=== PATIENT | female | born 1950 | race Caucasian/White ===

== ENCOUNTER 2024-12-30 14:40 | Outpatient (AMB) | payer MEDICARE, MEDICAID, SELFPAY ==
--- NOTE | 2024-12-30 14:57 | MHC.PC.OV ---
Vital Signs 12/30/24 15:06 Height 4 ft 7 in Weight 192 lb 6 oz BMI 44.7 BP 158/72 H Blood Pressure Location Rt brachial Position Sitting Pulse 54 Pulse Source Pulse Oximeter Temp 98.6 F Temp Source Temporal Artery Scan Pulse Oximetry (%) 98 Oxygen Delivery Method Room Air Intake Visit Reasons: EST CARE/ANERISM Intake Note: Symone presents in the office today to establish care. Allergies pneumococcal vaccine Allergy (Unknown, Verified 12/30/24 17:40) unknown amoxicillin Allergy (Verified 12/30/24 15:31) Unknown aspirin Allergy (Verified 12/30/24 15:31) Unknown carvedilol Allergy (Verified 12/30/24 15:31) Unknown chlorthalidone Allergy (Verified 12/30/24 15:31) Unknown clarithromycin Allergy (Verified 12/30/24 15:31) Unknown doxycycline Allergy (Verified 12/30/24 15:31) Unknown dyphylline Allergy (Verified 12/30/24 15:31) Unknown hydrochlorothiazide Allergy (Verified 12/30/24 15:31) Unknown levofloxacin [From Levaquin] Allergy (Verified 12/30/24 15:32) Unknown lisinopril Allergy (Verified 12/30/24 15:31) Unknown loratadine [From Claritin] Allergy (Verified 12/30/24 15:32) Unknown methylprednisolone Allergy (Verified 12/30/24 15:31) Unknown prednisone Allergy (Verified 12/30/24 15:31) Unknown spironolactone Allergy (Verified 12/30/24 15:31) Unknown tetracycline Allergy (Verified 12/30/24 15:31) Unknown theophylline Allergy (Verified 12/30/24 15:31) Unknown influenza vaccine Allergy (Unknown, Uncoded 12/30/24 17:40) unknown Contrast Dye Allergy (Uncoded 12/30/24 15:31) Unknown Slo-bid Gyrocaps Allergy (Uncoded 12/30/24 15:31) Unknown Tobacco use date assessed: 12/30/24 Fall risk assessment: No Falls in past year Last assessed Fall Risk: 12/30/24 Dental Screening Dental Screen Date: 12/30/24 Did you have a dental visit in the last 12 months?: Yes Did you have a dental problem in the last 6 months where you did not have access to dental care?: No Was dental information given to patient?: Patient has dentist HPI HPI Comments History of Present Illness Details This is a 74-year-old female with a past medical history of osteoarthritis, asthma, chronic anemia, B12 deficiency, colon polyps, elevated alkaline phosphatase, hypertension, hyperparathyroidism, hypothyroidism, atrial fibrillation, aortic aneurysm, obstructive sleep apnea, vitamin-D deficiency and varicose veins presenting to critical access hospital care. She transferred from [facility], Dr. Mukesh Kennedy. Accompanied by her son. Anemia, low b12-she is followed by hematology in [facility], Dr. Garza. She has a follow up in March. Atrial fibrillation, aortic aneurysm-followed by cardiology, Dr. Morocho. Taking Eliquis. She had a recent CT chest on 12/20/24 4.2 cm unchanged ascending aortic aneurysm. She has an appointment with Dr. Jesus on 01/15/25. Anticoagulated on Eliquis. Hypertension-fluctuates per patient. Stress increases blood pressure. She is on metoprolol and valsartan. She has a blood pressure cuff at home. At higher dosages of metoprolol she suffered from worse bradycardia which resulted in hospitalization. Adverse reactions to multiple antihypertensives. See allergen list. She is followed by Dr Zavala for pulmonary hyptertension and asthma. MADISON-on CPAP. She is followed by [facility] endocrinology for hyperparathyroidism. She is going to have blood work done at [facility] specialist have already ordered the tests. Bilateral OA in her knees. Bone on bone Tried injections. It did not help. Mammograms and bone density at [facility]. ROS: Constitutional: No unexplained weight loss, fever, chills Eyes: No vision changes Respiratory: No shortness of breath, cough or sputum production. Cardiovascular: No chest pain, chest pressure or chest discomfort. No palpitations Neurologic: No headache, dizziness, syncope Psychiatric: No depression or anxiety. No SI/HI. Physical exam: Constitutional: Alert, in no distress. Head: Normocephalic. Neck: Supple, Full range of motion. No lymphadenopathy. No palpable thyroid masses. Respiratory: Clear to auscultation. Cardiovascular: irregularly irregular rhythm, normal rate, No murmurs. No carotid bruits. Neurologic: No focal neurological deficits Musculoskeletal: +Bilateral crepitus and anterior medial tenderness. No edema/warmth. Ambulates with cane.. Extremities: Warm and well perfused. No clubbing, cyanosis. Trace bilateral ankle edema. Psychiatric: Normal mood and affect [facility] Medical History (Updated 12/30/24 @ 17:44 by DALE Flower) Morbid obesity Varicose vein of leg Vitamin D deficiency MADISON (obstructive sleep apnea) Aortic aneurysm Atrial fibrillation Hypothyroid Hyperparathyroidism Essential hypertension Elevated alkaline phosphatase level Colon polyp B12 deficiency Chronic anemia Moderate persistent asthma Bilateral primary osteoarthritis of knee Social History (Updated 12/30/24 @ 15:06 by Corazon Cotton MA) Housing: Apartment Alcohol intake: never Patient Tobacco Use Status: Never used Tobacco e-Cigarette/Vaping Use: Never Used Second Hand Smoke Exposure: Yes service: No Current occupational status: retired Current occupational exposures/hazards: No Cognitive needs: No Hearing needs: No Vision needs: No Questionnaire PHQ-9 Over the last 2 weeks, how often have you been bothered by any of the following problems? 1. Little interest or pleasure in doing things: not at all 2. Feeling down, depressed, or hopeless: not at all 3. Trouble falling or staying asleep, or sleeping too much: not at all 4. Feeling tired or having little energy: not at all 5. Poor appetite or overeating: not at all 6. Feeling bad about yourself - or that you are a failure or have let yourself or your family down: not at all 7. Trouble concentrating on things, such as reading the newspaper or watching television: not at all 8. Moving or speaking so slowly that other people could have noticed. Or the opposite - being so fidgety or restless that you have been moving around a lot more than usual: not at all 9. Thoughts that you would be better off or of hurting yourself in some way: not at all Total score: 0 Depression Screening Interpretation: Negative Depression Screening Done: Yes 83901 - PHQ-9 Billing: Patient declined-do not bill Source: Developed by Drs. Teo Garcia, Ania Gilliland, Juan Marin and colleagues, with an educational miri from [employer]. Thrive Questionnaire Date Thrive assessed: 12/30/24 I am a: Patient What is your living situation today?: I have a steady place to live Within the past 12 months, did the food you bought not last and you didn't have the money to get more?: Never true Within the past 12 months, did you worry whether your food would run out before you got money to buy more?: Never true Do you have trouble paying for medicines?: No Do you have trouble getting transportation to medical appointments?: No Do you have trouble paying your heating and electricity bill?: No Do you have trouble taking care of your child, family member or friend?: No Do you have trouble with day-to-day activities such as bathing, preparing meals, shopping, managing finances, etc.?: No Are you currently unemployed and looking for a job?: No Are you interested in more education?: No Please select the resources that you would like help with: None Currently or been in a relationship where the following occur: No concerns reported THRIVE Score: 0 AUDIT C Alcohol Use Questionnaire (AUDIT-C) 1. How often do you have a drink containing alcohol?: Never 3. How often do you have six or more drinks on one occasion?: Never Total Score: 0 Score Reviewed/Action Taken: No ADAM-7 AMB Questionnaire ADAM-7 Date ADAM - 7 assessed: 12/30/24 Feeling nervous, anxious, or on edge: 0 = Not at all Not being able to stop or control worryin = Not at all Worrying too much about different things: 0 = Not at all Trouble relaxin = Not at all Being so restless that it is hard to sit still: 0 = Not at all Becoming easily annoyed or irritable: 0 = Not at all Feeling afraid as if something awful might happen: 0 = Not at all Total ADAM-7 score (0-4 normal; 5-9 mild; 10-14 moderate; 15-21 severe): 0 Source: Developed by Drs. Teo Garcia, Ania Gilliland, Juan Marin and colleagues, with an educational miri from [employer]. ADAM-7 Assessment Billing ADAM-7 Assessment Tool: ADAM-7 Assessment 04697 Physical exam (Primary Care) Vital Signs: Last Vital Signs Temp 98.6 F 12/30/24 15:06 Pulse 54 12/30/24 15:06 BP 158/72 H 12/30/24 15:06 Pulse Ox 98 12/30/24 15:06 Oxygen Delivery Method Room Air 12/30/24 15:06 BMI result Body Mass Index 44.7 Tobacco/Smoking Status: Tobacco use Status Tobacco use date assessed 12/30/24 12/30/24 15:12 Patient Tobacco Use Status Never used Tobacco 12/30/24 15:12 e-Cigarette/Vaping Use Never Used 12/30/24 15:12 PHQ-9: PHQ-9 Score PHQ-9: Total score 0 12/30/24 15:21 Depression Screening Interpretation: Negative Thrive Assessment: Date of Thrive Assessment Date Thrive assessed 12/30/24 12/30/24 14:59 Currently or been in a relationship where the following occur: No concerns reported Coding Level of Care Code New Pt Level 4 (60365) Complex EM visit Add On G2211 Diagnoses MADISON (obstructive sleep apnea) G47.33 Aortic aneurysm I71.9 Atrial fibrillation I48.91 Hypothyroid E03.9 Hyperparathyroidism E21.3 Essential hypertension I10 Moderate persistent asthma J45.40 Chronic anemia D64.9 Additional Codes ADAM-7 Assessment Billing - ADAM-7 Assessment Tool: ADAM-7 Assessment [id number] ([id number]) Assessment & Plan Assessment & Plan (1) MADISON (obstructive sleep apnea): Code(s): G47.33 - Obstructive sleep apnea (adult) (pediatric) Category: Medical (2) Aortic aneurysm: Code(s): I71.9 - Aortic aneurysm of unspecified site, without rupture Category: Medical (3) Atrial fibrillation: Code(s): I48.91 - Unspecified atrial fibrillation Category: Medical (4) Hypothyroid: Code(s): E03.9 - Hypothyroidism, unspecified Category: Medical (5) Hyperparathyroidism: Code(s): E21.3 - Hyperparathyroidism, unspecified Category: Medical (6) Essential hypertension: Code(s): I10 - Essential (primary) hypertension Category: Medical (7) Moderate persistent asthma: Code(s): J45.40 - Moderate persistent asthma, uncomplicated Category: Medical (8) Chronic anemia: Code(s): D64.9 - Anemia, unspecified Category: Medical Plan The patient will continue her current medications. We discussed that her blood pressure is elevated today, but she attributes this to anxiety. She has a blood pressure cuff at home, and she agreed to send me readings over the portal, and she has a follow up with Cardiology on 01/15/2025. We reviewed the results of her CAT scan which showed an unchanged aortic aneurysm. This will require further monitoring with her cardiology team, but she is satisfied that it has not enlarged. We discussed that blood pressure needs to remain well-controlled given risk factors for cardiovascular disease and history of aortic aneurysm. She understands. Recommended low-sodium diet and avoidance of caffeine. She will follow up with her specialists as planned. I have placed orders for knee x-rays and referral to Orthopedics. She will follow up with me in 3 months. Orders: Orders XR knee LT 2V Today M17.0 - Bilateral primary osteoarthritis of knee XR knee RT 2V Today M17.0 - Bilateral primary osteoarthritis of knee Referrals Orthopedics Referral M17.0 - Bilateral primary osteoarthritis of knee
[2024-12-30 15:06] VITALS: BP 158/72; PULSE 54; TEMP 37; O2SAT 98; BMI 44.7
== END 2024-12-30 16:48 | disposition home or self-care (01) ==
LOC: HO.HMCFM 14:41
PROVIDERS: PCP Physician Assistant Medical; Visit Provider Physician Assistant Medical
DX: G47.33 Obstructive sleep apnea (adult) (pediatric) (principal); I71.9 Aortic aneurysm of unspecified site, without rupture; I48.91 Unspecified atrial fibrillation; E03.9 Hypothyroidism, unspecified; E21.3 Hyperparathyroidism, unspecified; I10 Essential (primary) hypertension; J45.40 Moderate persistent asthma, uncomplicated; D64.9 Anemia, unspecified

== ENCOUNTER → 2024-12-30 14:40 | Outpatient (BNVA) | payer MEDICARE, SELFPAY | PROVIDERS: PCP Physician Assistant Medical; Visit Provider Physician Assistant Medical | DX: J45.40 Moderate persistent asthma, uncomplicated (principal); I10 Essential (primary) hypertension; E21.3 Hyperparathyroidism, unspecified; E03.9 Hypothyroidism, unspecified; I48.91 Unspecified atrial fibrillation; G47.33 Obstructive sleep apnea (adult) (pediatric); I71.9 Aortic aneurysm of unspecified site, without rupture; D64.9 Anemia, unspecified; M17.0 Bilateral primary osteoarthritis of knee | CPT/HCPCS: 96127; 99202 ==

== ENCOUNTER 2025-03-18 10:01 | Outpatient (REF) | payer MEDICARE, MEDICAID, SELFPAY ==
--- NOTE | ~2025-03-18 | XR_ITS ---
EXAMINATION: XR KNEE, RIGHT CLINICAL INFORMATION: M25.569 - Pain in unspecified knee COMPARISON: None available. TECHNIQUE: Three views of the right knee. FINDINGS: There is severe narrowing of the medial joint space. There is narrowing of the patellofemoral lateral joint base. There is chondrocalcinosis involving the medial and lateral compartments. There is varus deformity. There are moderate tricompartmental marginal osteophytes. 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 Electronically signed by: Magen Real MD 03/18/2025 02:35 PM EDT
--- NOTE | ~2025-03-18 | XR_ITS ---
EXAMINATION: XR KNEE, LEFT CLINICAL INFORMATION: M25.569 - Pain in unspecified knee COMPARISON: None available. TECHNIQUE: Three views of the left knee. FINDINGS: There is severe narrowing of the medial joint space and minimal narrowing of the lateral joint space. Patellofemoral joint space is relatively preserved. There is a joint effusion. There is chondrocalcinosis in the medial and lateral compartments. There are moderate osteophytes involving the medial joint line and small osteophytes in the patellofemoral and lateral joint compartments. XR/XR knee LT 3V IMPRESSION: Moderate to severe osteoarthritis secondary to CPPD arthropathy with a joint effusion. Electronically signed by: Magen Real MD 03/18/2025 02:34 PM EDT
== END 2025-03-18 10:02 | disposition home or self-care (01) ==
LOC: HO.HOSX 10:01
PROVIDERS: Visit Provider Physician Assistant
DX: M17.0 Bilateral primary osteoarthritis of knee (principal); M25.561 Pain in right knee; M25.562 Pain in left knee; G89.29 Other chronic pain; Z79.01 Long term (current) use of anticoagulants
CPT/HCPCS: 73562; 99202

== ENCOUNTER 2025-03-18 14:07 | Outpatient (AMB) | payer MEDICARE, MEDICAID, SELFPAY ==
[2025-03-18 14:29] VITALS: BMI 44.6
--- NOTE | 2025-03-18 14:29 | MHC.OFFVIS ---
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 Patient reports ongoing knee pain for quite some time now, has had injections in the past at [facility] that were not helpful. Her pain is felt every day with the right knee slightly worse than the left. She does not take anything for her pain due to extensive medical history and allergies. She is unsure how she would like to proceed with treatment options because of her history as well. she would like to learn more about gel injections. Allergies pneumococcal vaccine Allergy (Unknown, Verified 03/18/25 14:29) unknown amoxicillin Allergy (Verified 03/18/25 14:29) Unknown aspirin Allergy (Verified 03/18/25 14:29) Unknown carvedilol Allergy (Verified 03/18/25 14:29) Unknown chlorthalidone Allergy (Verified 03/18/25 14:29) Unknown clarithromycin Allergy (Verified 03/18/25 14:29) Unknown doxycycline Allergy (Verified 03/18/25 14:29) Unknown dyphylline Allergy (Verified 03/18/25 14:29) Unknown hydrochlorothiazide Allergy (Verified 03/18/25 14:29) Unknown levofloxacin (From Levaquin) Allergy (Verified 03/18/25 14:29) Unknown lisinopril Allergy (Verified 03/18/25 14:29) Unknown loratadine (From Claritin) Allergy (Verified 03/18/25 14:29) Unknown methylprednisolone Allergy (Verified 03/18/25 14:29) Unknown prednisone Allergy (Verified 03/18/25 14:29) Unknown spironolactone Allergy (Verified 03/18/25 14:29) Unknown tetracycline Allergy (Verified 03/18/25 14:29) Unknown theophylline Allergy (Verified 03/18/25 14:29) Unknown influenza vaccine Allergy (Unknown, Uncoded 03/18/25 14:29) unknown Contrast Dye Allergy (Uncoded 03/18/25 14:29) Unknown Slo-bid Gyrocaps Allergy (Uncoded 03/18/25 14:29) Unknown HPI HPI 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 Ethan Calderon is a 75-year-old female who presents to the office today for bilateral knee arthritis. She states that she has had chronic knee pain for many years. She was being seen prior at [facility] where she was receiving cortisone injections. Over time the patient reports that cortisone injections became less helpful. She is interested in pursuing gel injections. [facility] Medical History Morbid obesity Varicose vein of leg Vitamin D deficiency MADISON (obstructive sleep apnea) Aortic aneurysm Atrial fibrillation Hypothyroid Hyperparathyroidism Essential hypertension Elevated alkaline phosphatase level Colon polyp B12 deficiency Chronic anemia Moderate persistent asthma Bilateral primary osteoarthritis of knee Social History Housing: Apartment Alcohol intake: never Patient Tobacco Use Status: Never used Tobacco e-Cigarette/Vaping Use: Never Used Second Hand Smoke Exposure: Yes service: No Current occupational status: retired Current occupational exposures/hazards: No Cognitive needs: No Hearing needs: No Vision needs: No Review of Systems Const All systems reviewed & are unremarkable except as noted in HPI and below Physical Exam Vital Signs: BMI result Body Mass Index 44.6 Const General: cooperative, healthy appearing and no acute distress Resp Effort & Inspection: normal respiratory effort and able to speak in complete sentences Extrem Other: Bilateral lower extremities: Large body habitus. Tenderness to palpation bilaterally in the lateral joint lines. Crepitus felt with range of motion. Range of motion 10-100 degrees. NVI. Assessment & Plan Assessment & Plan (1) Bilateral primary osteoarthritis of knee: Code(s): M17.0 - Bilateral primary osteoarthritis of knee Category: Medical Plan Ms. Ethan Calderon is a 75-year-old female who presents to the office today for bilateral knee arthritis. She states that she has had chronic knee pain for many years. She was being seen prior at [facility] where she was receiving cortisone injections. Over time the patient reports that cortisone injections became less helpful. She is interested in pursuing gel injections. While the office today, we discussed the role of gel injections. The patient is interested in moving forward with these. She would like to exacerbate all conservative treatment before surgical intervention is considered. She has multiple comorbidities that would make surgical intervention difficult such as an aortic aneurysm, atrial fibrillation on Eliquis, morbid obesity with a BMI of 44.6, and persistent asthma among others. We will petition the insurance company for coverage of gel injections. Once we hear back from the insurance company we will schedule appointments appropriately. X-rays of bilateral knees which were obtained while in the office today and were reviewed by me, Taylor Garcia PA-C, revealed severe osteoarthritis bilaterally. Orders: Orders XR knee RT 3V Today M25.569 - Pain in unspecified knee XR knee LT 3V Today M25.569 - Pain in unspecified knee Coding Level of Care Code New Pt Level 4 (30334) Diagnoses Bilateral primary osteoarthritis of knee M17.0
== END 2025-03-18 15:09 | disposition home or self-care (01) ==
LOC: HO.HOS 14:08
PROVIDERS: PCP Physician Assistant Medical; Visit Provider Physician Assistant
DX: M17.0 Bilateral primary osteoarthritis of knee (principal)
CPT/HCPCS: 99204

== ENCOUNTER → 2025-03-18 14:15 | Outpatient (BNV) | payer MEDICARE, MEDICAID, SELFPAY | PROVIDERS: Visit Provider Radiology Diagnostic Radiology | DX: M17.0 Bilateral primary osteoarthritis of knee (principal); M25.462 Effusion, left knee; M11.261 Other chondrocalcinosis, right knee; M11.262 Other chondrocalcinosis, left knee; M21.161 Varus deformity, not elsewhere classified, right knee | CPT/HCPCS: 73562 ==

== ENCOUNTER 2025-04-10 14:14 | Outpatient (REF) | payer MEDICARE, SELFPAY ==
[2025-04-10 18:12] LABS: Alanine Aminotransferase 24 U/L (0-31); Albumin Level 4.7 g/dL (3.5-5.0); Alkaline Phosphatase 78 U/L (39-117); Anion Gap 11 (12-20); Aspartate Amino Transferase 21 U/L (5-31); Blood Urea Nitrogen 27 mg/dL (9-16); Calcium 10.8 mg/dL (8.4-10.2); Carbon Dioxide 28 mmol/L (22-29); Chloride 108 mmol/L (96-108); Estimated Glomerular Filt Rate > 60; Hematocrit 35.4 % (37.0-47.0); Hemoglobin 11.2 g/dl (12.0-16.0); Magnesium 2.2 mg/dL (1.6-2.6); Mean Corpuscular HGB Conc 31.6 g/dl (31.0-35.0); Mean Corpuscular Hemoglobin 31.3 pg (27.0-33.0); Mean Corpuscular Volume 98.9 fL (80.0-98.0); NRBC Abs Auto 0.000 X10*3/uL (0.0-0.012); NRBC Pct Auto 0.0 /100WBC (0.0-0.2); Platelet Count 192 X10*3/uL (160-400); Potassium 4.5 mmol/L (3.3-5.1); Red Blood Count 3.58 X10*6/uL (4.20-5.50); Sodium 142 mmol/L (135-145); Total Protein 7.2 g/dL (6.5-8.0); White Blood Count 4.6 X10*3/uL (4.8-10.8)
== END 2025-04-10 14:15 | disposition home or self-care (01) ==
LOC: HO.WFDLDS 14:14
PROVIDERS: PCP Physician Assistant Medical; Visit Provider Physician Assistant Medical
DX: I48.91 Unspecified atrial fibrillation (principal); I10 Essential (primary) hypertension; E03.9 Hypothyroidism, unspecified; E21.3 Hyperparathyroidism, unspecified; D64.9 Anemia, unspecified; M79.10 Myalgia, unspecified site; M54.2 Cervicalgia; R20.2 Paresthesia of skin; Z86.73 Personal history of transient ischemic attack (TIA), and cerebral infarction without residual deficits
CPT/HCPCS: 36415; 80053; 83735; 84443; 85027; 93005; 99212

== ENCOUNTER 2025-04-10 14:14 | Outpatient (AMB) | payer MEDICARE, MEDICAID, SELFPAY ==
--- NOTE | 2025-04-10 14:31 | MHC.PC.OV ---
Vital Signs 04/10/25 14:41 04/10/25 15:12 Height 4 ft 7 in Weight 188 lb BMI 43.7 BP 198/66 H 178/68 H Blood Pressure Location Lt brachial Position Sitting Pulse 61 Pulse Source Pulse Oximeter Temp 97.7 F Temp Source Temporal Artery Scan Pulse Oximetry (%) 95 Oxygen Delivery Method Room Air Intake Visit Reasons: follow up Intake Note: Symone presents in the office today for a follow up to her xrays. Patient states that she has been experiencing muscle pain and excelerated HR and palpatations as well as numbness on the side of her mouth when sleeping. Allergies pneumococcal vaccine Allergy (Unknown, Verified 04/10/25 14:35) unknown amoxicillin Allergy (Verified 04/10/25 14:35) Unknown aspirin Allergy (Verified 04/10/25 14:35) Unknown carvedilol Allergy (Verified 04/10/25 14:35) Unknown chlorthalidone Allergy (Verified 04/10/25 14:35) Unknown clarithromycin Allergy (Verified 04/10/25 14:35) Unknown doxycycline Allergy (Verified 04/10/25 14:35) Unknown dyphylline Allergy (Verified 04/10/25 14:35) Unknown hydrochlorothiazide Allergy (Verified 04/10/25 14:35) Unknown levofloxacin (From Levaquin) Allergy (Verified 04/10/25 14:35) Unknown lisinopril Allergy (Verified 04/10/25 14:35) Unknown loratadine (From Claritin) Allergy (Verified 04/10/25 14:35) Unknown methylprednisolone Allergy (Verified 04/10/25 14:35) Unknown prednisone Allergy (Verified 04/10/25 14:35) Unknown spironolactone Allergy (Verified 04/10/25 14:35) Unknown tetracycline Allergy (Verified 04/10/25 14:35) Unknown theophylline Allergy (Verified 04/10/25 14:35) Unknown atorvastatin Adverse Reaction (Intermediate, Verified 04/10/25 14:59) myalgias influenza vaccine Allergy (Unknown, Uncoded 04/10/25 14:35) unknown Contrast Dye Allergy (Uncoded 04/10/25 14:35) Unknown Slo-bid Gyrocaps Allergy (Uncoded 04/10/25 14:35) Unknown Tobacco use date assessed: 04/10/25 Dental Screening Dental Screen Date: 04/10/25 Did you have a dental visit in the last 12 months?: Yes Did you have a dental problem in the last 6 months where you did not have access to dental care?: No Was dental information given to patient?: Patient has dentist HPI HPI Comments History of Present Illness Details This is a 74-year-old female with a past medical history of osteoarthritis, asthma, chronic anemia, B12 deficiency, colon polyps, elevated alkaline phosphatase, hypertension, hyperparathyroidism, hypothyroidism, atrial fibrillation, aortic aneurysm, obstructive sleep apnea, vitamin-D deficiency and varicose veins presenting with concerns about her cholesterol medication. She is a recent transfer from [facility], Dr. Mukesh Kennedy. She is here with her son. Anemia, low b12-she is followed by hematology in [facility], Dr. Garza. She has a follow up in March. Two weeks ago she took Atorvastin at bedtime and woke up that night a couple hours later with palpitations/racing heart. No chest pain, shortness of breath, dizziness. She endorses muscle pains since starting the medication. She says whichever side of her face she lays on at night gets numb, and she has to keep switching sides on her pillows. Endorses chronic neck pain. Atrial fibrillation, aortic aneurysm-followed by cardiology, Dr. Morocho. Taking Eliquis. She had a recent CT chest on 12/20/24 4.2 cm unchanged ascending aortic aneurysm. She did not get to see Dr. Jesus. Appointment scheduled in April. Anticoagulated on Eliquis. Hypertension-fluctuates a lot per patient. Initial BP today is 198/66. Patient reports they found out some bad news about their living situation before the appointment so she is very stressed. After sitting for awhile the blood pressure decreased to 178/68. She denies headaches, weakness, vision changes, chest pain or shortness of breath. She denies numbness or tingling in her extremities. She endorses chronic tingling around the right corner of the mouth since having a stroke 3 years ago which is at baseline. She is on metoprolol and valsartan. She has a blood pressure cuff at home. At higher dosages of metoprolol she suffered episodes of bradycardia which resulted in hospitalization. Adverse reactions to multiple antihypertensives. See allergen list. History of CVA 3 years ago-presented with right-sided weakness, numbness and aphasia. Patient on Eliquis, high-dose statin. She is followed by Dr Zavala for pulmonary hyptertension and asthma. MADISON-on CPAP. [place] [facility] She is followed by [facility] endocrinology for hyperparathyroidism. She has severe bilateral osteoarthritis in her knees. Seen by Orthopedics. She is going to receive injections this month. She's requesting a prescription for a motorized scooter sent to [facility]. She uses a cane. Mammograms and bone density at [facility]. ROS: Constitutional: No unexplained weight loss, fever, chills, fatigue or night sweats. Eyes: No vision changes, blurry vision, double vision, eye pain, eye redness, eye discharge. ENT: No hearing loss, sneezing, congestion, runny nose or sore throat. Respiratory: No shortness of breath, cough or sputum production. Cardiovascular: No chest pain, chest pressure or chest discomfort or pedal edema. +palpitations per HPI Gastrointestinal: No anorexia, nausea, vomiting or diarrhea. No abdominal pain or blood in stool. Genitourinary: No dysuria, hematuria, urinary frequency. Neurologic: No headache, dizziness, syncope, unilateral weakness, ataxia, numbness or tingling in the extremities. See HPI. Musculoskeletal: See HPI Hematologic/Lymphatics: No bleeding or bruising. No painful lymph nodes. Skin: Tick bites or skin rashes Endocrine: No cold or heat intolerance. No polyuria or polydipsia. Psychiatric: +stress Physical exam: Constitutional: Alert, in no distress. Head: Normocephalic. Eyes: Pupils are equal, round and reactive to light. Extraocular muscles intact. Ear, Nose and Throat: Canals clear. TMs normal. Normal nasal mucosa. No nasal discharge. No oral lesions. Neck: Supple, Full range of motion. No lymphadenopathy. No palpable thyroid masses. Respiratory: Clear to auscultation. Cardiovascular: S1 S2 regular. No murmurs. +Ectopic beats. Neurologic: No focal neurological deficits. Symmetric patellar reflexes. Moves all extremities spontaneously. Sensation intact bilaterally. Skin: No rashes Extremities: Warm and well perfused. No clubbing, cyanosis or edema. Intact peripheral pulses bilaterally. Psychiatric: Normal mood and affect [facility] Medical History (Updated 04/11/25 @ 17:32 by DALE Flower) Facial paresthesia Cervicalgia History of CVA (cerebrovascular accident) Myalgia Paresthesia Morbid obesity Varicose vein of leg Vitamin D deficiency MADISON (obstructive sleep apnea) Aortic aneurysm Atrial fibrillation Hypothyroid Hyperparathyroidism Essential hypertension Elevated alkaline phosphatase level Colon polyp B12 deficiency Chronic anemia Moderate persistent asthma Bilateral primary osteoarthritis of knee Social History (Updated 04/10/25 @ 14:39 by Corazon Cotton MA) Housing: Apartment Alcohol intake: never Patient Tobacco Use Status: Never used Tobacco e-Cigarette/Vaping Use: Never Used Second Hand Smoke Exposure: Yes service: No Current occupational status: retired Current occupational exposures/hazards: No Cognitive needs: No Hearing needs: No Vision needs: No Questionnaire Thrive Questionnaire Date Thrive assessed: 12/23/24 I am a: Patient What is your living situation today?: I have a steady place to live Within the past 12 months, did the food you bought not last and you didn't have the money to get more?: Never true Within the past 12 months, did you worry whether your food would run out before you got money to buy more?: Never true Do you have trouble paying for medicines?: No Do you have trouble getting transportation to medical appointments?: No Do you have trouble paying your heating and electricity bill?: No Do you have trouble taking care of your child, family member or friend?: No Do you have trouble with day-to-day activities such as bathing, preparing meals, shopping, managing finances, etc.?: No Are you currently unemployed and looking for a job?: No Are you interested in more education?: No Please select the resources that you would like help with: None Currently or been in a relationship where the following occur: No concerns reported THRIVE Score: 0 ADAM-7 AMB Questionnaire ADAM-7 Date ADAM - 7 assessed: 12/30/24 Source: Developed by Drs. Teo Garcia, Ania Gilliland, Juan Marin and colleagues, with an educational miri from [employer]. Physical exam (Primary Care) Vital Signs: Last Vital Signs Temp 97.7 F 04/10/25 14:41 Pulse 61 04/10/25 14:41 BP 178/68 H 04/10/25 15:12 Pulse Ox 95 04/10/25 14:41 Oxygen Delivery Method Room Air 04/10/25 14:41 BMI result Body Mass Index 43.7 Tobacco/Smoking Status: Tobacco use Status Tobacco use date assessed 04/10/25 04/10/25 14:44 Patient Tobacco Use Status Never used Tobacco 04/10/25 14:39 e-Cigarette/Vaping Use Never Used 04/10/25 14:39 Thrive Assessment: Date of Thrive Assessment Date Thrive assessed 12/23/24 04/10/25 14:32 Currently or been in a relationship where the following occur: No concerns reported Coding Level of Care Code Est Pt Level 5 (85345) Complex EM visit Add On G2211 Diagnoses Atrial fibrillation, unspecified type I48.91 Atrial fibrillation type: unspecified Essential hypertension I10 Hypothyroid E03.9 Hyperparathyroidism E21.3 Chronic anemia D64.9 Myalgia M79.10 History of CVA (cerebrovascular accident) Z86.73 Cervicalgia M54.2 Facial paresthesia R20.2 Time Spent (min) 46 Comment Direct patient care, chart review, completing documentation Assessment & Plan Assessment & Plan (1) Atrial fibrillation: Code(s): I48.91 - Unspecified atrial fibrillation Category: Medical Qualifiers: Atrial fibrillation type: unspecified Qualified Code(s): I48.91 - Unspecified atrial fibrillation (2) Essential hypertension: Code(s): I10 - Essential (primary) hypertension Category: Medical (3) Hypothyroid: Code(s): E03.9 - Hypothyroidism, unspecified Category: Medical (4) Hyperparathyroidism: Code(s): E21.3 - Hyperparathyroidism, unspecified Category: Medical (5) Chronic anemia: Code(s): D64.9 - Anemia, unspecified Category: Medical (6) Myalgia: Code(s): M79.10 - Myalgia, unspecified site Category: Medical (7) History of CVA (cerebrovascular accident): Code(s): Z86.73 - Personal history of transient ischemic attack (TIA), and cerebral infarction without residual deficits Category: Medical (8) Cervicalgia: Code(s): M54.2 - Cervicalgia Category: Medical (9) Facial paresthesia: Code(s): R20.2 - Paresthesia of skin Category: Medical Plan The patient stopped taking atorvastatin 2 weeks ago after the episode of palpitations, and her body aches improved. She is willing to try rosuvastatin. We will start her at an initial dose of 20 mg daily. Side effects and administration reviewed. EKG today shows sinus bradycardia with PACs. I told her I do not think atorvastatin caused the episode of palpitations a couple of weeks ago. I am more concerned about breakthrough AFib. She wants to switch Cardiology to [place], but I am unsure how quickly she will be able to get in so she will keep the upcoming appointment with [facility] Cardiology in April. If she has recurrent episodes of palpitations she was instructed to call 911. Continue beta blockade. Her blood pressure improved and may be due to stress. She says it varies greatly. She is going to follow up with Cardiology. She declined med changes today given her history of adverse reactions and bradycardia on higher doses of metoprolol. She says that she has a blood pressure cuff at home and she will check later today and tomorrow and call the office with the reading. Warning signs warranting ER evaluation reviewed with the patient. We discussed that uncontrolled hypertension is a risk factor for recurrent stroke and for cardiovascular disease. Check labs for electrolyte derangement, TSH, anemia, magnesium. Referred to [place] [facility] [place] wants to transfer care. We will send prescription for scooter. She has severe osteoarthritis in both knees. It is medically necessary. Check x-ray of the cervical spine for spondylosis given report of positional paresthesias when she is lying in bed. Follow up in 1 month. Orders: Orders TSH reflex Free T4 04/10/25 I48.91 - Unspecified atrial fibrillation Comprehensive Met. Panel 04/10/25 I48.91 - Unspecified atrial fibrillation AMB EKG-In Office 04/10/25 I48.91 - Unspecified atrial fibrillation XR cervical spine 4V 04/10/25 R20.2 - Paresthesia of skin Complete Blood Count no Diff 04/10/25 I48.91 - Unspecified atrial fibrillation Magnesium 04/10/25 I48.91 - Unspecified atrial fibrillation Referrals Cardiology Referral I48.91 - Unspecified atrial fibrillation Pulmonology Referral G47.33 - Obstructive sleep apnea (adult) (pediatric), J45.40 - Moderate persistent asthma, uncomplicated Medications: New rosuvastatin Replaces Atorvastatin 20 mg PO BEDTIME 90 tabs 0RF
[2025-04-10 14:41] VITALS: BP 198/66; PULSE 61; TEMP 36.5; O2SAT 95; BMI 43.7
[2025-04-10 15:12] VITALS: BP 178/68
== END 2025-04-10 15:31 | disposition home or self-care (01) ==
LOC: HO.HMCFM 14:15
PROVIDERS: PCP Physician Assistant Medical; Visit Provider Physician Assistant Medical
DX: I48.91 Unspecified atrial fibrillation (principal); I10 Essential (primary) hypertension; E03.9 Hypothyroidism, unspecified; E21.3 Hyperparathyroidism, unspecified; D64.9 Anemia, unspecified; M79.10 Myalgia, unspecified site; Z86.73 Personal history of transient ischemic attack (TIA), and cerebral infarction without residual deficits; M54.2 Cervicalgia; R20.2 Paresthesia of skin

== ENCOUNTER 2025-04-17 13:56 | Outpatient (AMB) | payer MEDICARE, MEDICAID, SELFPAY ==
--- NOTE | 2025-04-17 14:20 | MHC.OFFVIS ---
Vital Signs 04/17/25 14:21 Height 4 ft 7 in Weight 188 lb BMI 43.7 Intake Visit Reasons: B/L Knee Durolane Gel Injections Intake Note: Symone is a 75 year old female who presents today for bilateral knee Durolane injections. Allergies pneumococcal vaccine Allergy (Unknown, Verified 04/10/25 14:35) unknown amoxicillin Allergy (Verified 04/10/25 14:35) Unknown aspirin Allergy (Verified 04/10/25 14:35) Unknown carvedilol Allergy (Verified 04/10/25 14:35) Unknown chlorthalidone Allergy (Verified 04/10/25 14:35) Unknown clarithromycin Allergy (Verified 04/10/25 14:35) Unknown doxycycline Allergy (Verified 04/10/25 14:35) Unknown dyphylline Allergy (Verified 04/10/25 14:35) Unknown hydrochlorothiazide Allergy (Verified 04/10/25 14:35) Unknown levofloxacin (From Levaquin) Allergy (Verified 04/10/25 14:35) Unknown lisinopril Allergy (Verified 04/10/25 14:35) Unknown loratadine (From Claritin) Allergy (Verified 04/10/25 14:35) Unknown methylprednisolone Allergy (Verified 04/10/25 14:35) Unknown prednisone Allergy (Verified 04/10/25 14:35) Unknown spironolactone Allergy (Verified 04/10/25 14:35) Unknown tetracycline Allergy (Verified 04/10/25 14:35) Unknown theophylline Allergy (Verified 04/10/25 14:35) Unknown atorvastatin Adverse Reaction (Intermediate, Verified 04/10/25 14:59) myalgias influenza vaccine Allergy (Unknown, Uncoded 04/10/25 14:35) unknown Contrast Dye Allergy (Uncoded 04/10/25 14:35) Unknown Slo-bid Gyrocaps Allergy (Uncoded 04/10/25 14:35) Unknown HPI HPI B/L Knee Durolane Gel Injections: Details: Ms. Ethan martinez is a 75-year-old female who presents to the office today for bilateral Durolane gel injections. [facility] Medical History (Updated 04/14/25 @ 14:20 by DALE Flower) Hypercalcemia Facial paresthesia Cervicalgia History of CVA (cerebrovascular accident) Myalgia Paresthesia Morbid obesity Varicose vein of leg Vitamin D deficiency [place] (obstructive sleep apnea) Aortic aneurysm Atrial fibrillation Hypothyroid Hyperparathyroidism Essential hypertension Elevated alkaline phosphatase level Colon polyp B12 deficiency Chronic anemia Moderate persistent asthma Bilateral primary osteoarthritis of knee Social History (Updated 04/10/25 @ 14:39 by Corazon Cotton MA) Housing: Apartment Alcohol intake: never Patient Tobacco Use Status: Never used Tobacco e-Cigarette/Vaping Use: Never Used Second Hand Smoke Exposure: Yes service: No Current occupational status: retired Current occupational exposures/hazards: No Cognitive needs: No Hearing needs: No Vision needs: No Review of Systems Const All systems reviewed & are unremarkable except as noted in HPI and below Physical Exam Vital Signs: BMI result Body Mass Index 43.7 Const General: cooperative, healthy appearing and no acute distress Resp Effort & Inspection: normal respiratory effort and able to speak in complete sentences Extrem Other: Bilateral lower extremities: Large body habitus. Tenderness to palpation bilaterally in the lateral joint lines. Crepitus felt with range of motion. Range of motion 10-100 degrees. NVI. Office Procedures AMB Joint Injection/Aspiration Joint Injection/Aspiration Primary Site: right knee Secondary Site: left knee Prep: site was prepped using aseptic technique, ethochloride spray was applied and injection warnings given Injected: in the joint (Durolane injections) Approach Used: anterolateral Procedure: there was some relief with the local anesthesia and other (Patient had significant pain in the left knee upon injection.) Coding 86650 - Bilateral Large Joint Procedure code (CPT) selection complete Assessment & Plan Assessment & Plan (1) Bilateral primary osteoarthritis of knee: Code(s): M17.0 - Bilateral primary osteoarthritis of knee Category: Medical Plan Mr. Vela this is a 63-year-old male who presents to the office today status post left total knee arthroplasty performed on 03/31/[address] Nava. Patient is using a walker to assist with ambulation. He is doing very well overall. He is performing physical therapy with the [facility] and is ready to transition to outpatient therapy. No additional complaints. The patient was offered Durolane injections in bilateral knees. The patient was explained the risks, benefits, and alternatives to receiving this injection. After receiving consent for the injection, the patient had the procedure done while in the office today. The patient tolerated the procedure but had considerable pain in the left knee upon injection. Right knee pain was also reported upon injection but less severe than the left. Follow-up will be PRN, or sooner if needed Coding Level of Care Code Procedure Only Diagnoses Bilateral primary osteoarthritis of knee M17.0 CPT Codes Coding - - Bilateral Large Joint: 91108 - Bilateral Large Joint ([id number])
[2025-04-17 14:21] VITALS: BMI 43.7
== END 2025-04-17 14:23 | disposition home or self-care (01) ==
LOC: HO.HOS 13:57
PROVIDERS: Visit Provider Physician Assistant
DX: M17.0 Bilateral primary osteoarthritis of knee (principal)
CPT/HCPCS: 20610

== ENCOUNTER → 2025-04-17 13:56 | Outpatient (BNVA) | payer MEDICARE, MEDICAID, SELFPAY | PROVIDERS: Visit Provider Physician Assistant | DX: M17.0 Bilateral primary osteoarthritis of knee (principal) | CPT/HCPCS: 20610; J7318 ==

== ENCOUNTER 2025-05-12 11:40 | Outpatient (AMB) | payer MEDICARE, MEDICAID, SELFPAY ==
--- NOTE | 2025-05-12 11:55 | A.OFFPC_ITS ---
Vital Signs 05/12/25 12:01 Height 4 ft 7 in Weight 195 lb BMI 45.3 BP 142/82 H Blood Pressure Location Rt brachial Position Sitting Respiration 14 Pulse 52 Pulse Source Pulse Oximeter Temp 97.5 F Temp Source Temporal Artery Scan Pulse Oximetry (%) 97 Oxygen Delivery Method Room Air Intake Visit Reasons: 30 minutes complex Intake Note: Symone presents in the office today for a follow up. Allergies pneumococcal vaccine Allergy (Unknown, Verified 04/10/25 14:35) unknown amoxicillin Allergy (Verified 04/10/25 14:35) Unknown aspirin Allergy (Verified 04/10/25 14:35) Unknown carvedilol Allergy (Verified 04/10/25 14:35) Unknown chlorthalidone Allergy (Verified 04/10/25 14:35) Unknown clarithromycin Allergy (Verified 04/10/25 14:35) Unknown doxycycline Allergy (Verified 04/10/25 14:35) Unknown dyphylline Allergy (Verified 04/10/25 14:35) Unknown hydrochlorothiazide Allergy (Verified 04/10/25 14:35) Unknown levofloxacin (From Levaquin) Allergy (Verified 04/10/25 14:35) Unknown lisinopril Allergy (Verified 04/10/25 14:35) Unknown loratadine (From Claritin) Allergy (Verified 04/10/25 14:35) Unknown methylprednisolone Allergy (Verified 04/10/25 14:35) Unknown prednisone Allergy (Verified 04/10/25 14:35) Unknown rosuvastatin Allergy (Verified 05/12/25 12:00) Dizziness spironolactone Allergy (Verified 04/10/25 14:35) Unknown tetracycline Allergy (Verified 04/10/25 14:35) Unknown theophylline Allergy (Verified 04/10/25 14:35) Unknown atorvastatin Adverse Reaction (Intermediate, Verified 04/10/25 14:59) myalgias influenza vaccine Allergy (Unknown, Uncoded 04/10/25 14:35) unknown Contrast Dye Allergy (Uncoded 04/10/25 14:35) Unknown Slo-bid Gyrocaps Allergy (Uncoded 04/10/25 14:35) Unknown Medication List - Last Reconciled 05/12/25 by DALE Flower albuterol sulfate 90 mcg/actuation 2 puffs inhalation Q6H PRN apixaban (Eliquis) 5 mg PO BID cholecalciferol (vitamin D3) 50 mcg PO DAILY cyanocobalamin (vitamin B-12) 1,000 mcg PO DAILY ferrous sulfate 325 mg PO DAILY fluticasone furoate-vilanterol 100-25 mcg/dose (Breo Ellipta) 1 inh inhalation DAILY levothyroxine Take 1 tablet by mouth daily; lovastatin 10 mg PO BEDTIME metoprolol succinate ER 25 mg PO DAILY miscellaneous medical supply 1 ea miscellaneous DAILY valsartan 320 mg PO DAILY Tobacco use date assessed: 05/12/25 Dental Screening Dental Screen Date: 05/12/25 Did you have a dental visit in the last 12 months?: Yes Did you have a dental problem in the last 6 months where you did not have access to dental care?: No Was dental information given to patient?: Patient has dentist HPI HPI Comments History of Present Illness Details This is a 74-year-old female with a past medical history of osteoarthritis, asthma, chronic anemia, B12 deficiency, colon polyps, elevated alkaline phosphatase, hypertension, hyperparathyroidism, hypothyroidism, atrial fibrillation, aortic aneurysm, obstructive sleep apnea, vitamin-D deficiency and varicose veins presenting for follow up. She is a recent transfer from [facility], Dr. Mukesh Kennedy. She is here with her son. She would like referrals to change her specialists to [facility]. Anemia, low b12-she is followed by hematology in [facility], Dr. Garza. She is on ferrous sulfate 325 mg every other day and vitamin B12 1000 mcg daily. Hyperlipidemia-atorvastatin and rosuvastatin discontinued due to side effects. She is willing to try an alternative. She reported whichever side of her face she lays on at night gets numb, and she has to keep switching sides on her pillows. Endorses chronic neck pain. X-ray is pending. Atrial fibrillation, aortic aneurysm-followed by cardiology, Dr. Morocho. Taking Eliquis and a beta-amish. She had a recent CT chest on 12/20/24 4.2 cm unchanged ascending aortic aneurysm. Patient endorses only brief intermittent episodes of palpitations. No dizziness, chest pain or syncope. Hypertension-fluctuates a lot per patient. Blood pressure is better than at her last appointment. She is on metoprolol and valsartan. She has a blood pressure cuff at home. At higher dosages of metoprolol she suffered episodes of bradycardia which resulted in hospitalization. Adverse reactions to multiple antihypertensives. See gloria ni list. History of CVA 3 years ago-presented with right-sided weakness, numbness and aphasia. She is followed by Dr Zavala for pulmonary hyptertension and asthma. MADISON-on CPAP. She has an appointment coming up with pulmonology to transfer her care. She had to use her rescue inhaler last week. Today she feels well. She is followed by [facility] endocrinology for hyperparathyroidism and hyp othyroidism she is on levothyroxine. Her recent calcium level was mildly elevated. She is on a vitamin-D supplement. She did not come back for additional labs yet.. She has severe bilateral osteoarthritis in her knees. Followed by Orthopedics. Awaiting PT eval for motorized scooter evaluation. Mammograms and bone density at [facility]. ROS: Constitutional: No unexplained weight loss, fever, chills, fatigue or night sweats. Eyes: No vision changes, blurry vision, double vision, eye pain, eye redness, eye discharge. ENT: No hearing loss, sneezing, congestion, runny nose or sore throat. Respiratory: No shortness of breath, cough or sputum production. Cardiovascular: No chest pain, chest pressure or chest discomfort or pedal edema. +palpitations per HPI Neurologic: No headache, dizziness, syncope, unilateral weakness, ataxia, numbness or tingling in the extremities. Musculoskeletal: See HPI Hematologic/Lymphatics: No bleeding or bruising. No painful lymph nodes. Endocrine: No cold or heat intolerance. No polyuria or polydipsia. Physical exam: Constitutional: Alert, in no distress. Head: Normocephalic. Ear, Nose and Throat: Canals clear. TMs normal. Normal nasal mucosa. No nasal discharge. No oral lesions. Neck: Supple, Full range of motion. No lymphadenopathy. No palpable thyroid masses. Respiratory: Clear to auscultation. Cardiovascular: S1 S2 regular. No murmurs. Neurologic: No focal neurological deficits. Symmetric patellar reflexes. Moves all extremities spontaneously. Sensation intact bilaterally. Extremities: Warm and well perfused. No clubbing, cyanosis. 1+ lower extremity edema. Intact peripheral pulses bilaterally. Psychiatric: Normal mood and affect [facility] Medical History (Updated 04/14/25 @ 14:20 by DALE Flower) Hypercalcemia Facial paresthesia Cervicalgia History of CVA (cerebrovascular accident) Myalgia Paresthesia Morbid obesity Varicose vein of leg Vitamin D deficiency MADISON (obstructive sleep apnea) Aortic aneurysm Atrial fibrillation Hypothyroid Hyperparathyroidism Essential hypertension Elevated alkaline phosphatase level Colon polyp B12 deficiency Chronic anemia Moderate persistent asthma Bilateral primary osteoarthritis of knee Social History (Updated 05/12/25 @ 12:01 by Corazon Cotton MA) Housing: Apartment Alcohol intake: never Patient Tobacco Use Status: Never used Tobacco e-Cigarette/Vaping Use: Never Used Second Hand Smoke Exposure: Yes service: No Current occupational status: retired Current occupational exposures/hazards: No Cognitive needs: No Hearing needs: No Vision needs: No Questionnaire Thrive Questionnaire Date Thrive assessed: 12/23/24 I am a: Patient What is your living situation today?: I have a steady place to live Within the past 12 months, did the food you bought not last and you didn't have the money to get more?: Never true Within the past 12 months, did you worry whether your food would run out before you got money to buy more?: Never true Do you have trouble paying for medicines?: No Do you have trouble getting transportation to medical appointments?: No Do you have trouble paying your heating and electricity bill?: No Do you have trouble taking care of your child, family member or friend?: No Do you have trouble with day-to-day activities such as bathing, preparing meals, shopping, managing finances, etc.?: No Are you currently unemployed and looking for a job?: No Are you interested in more education?: No Please select the resources that you would like help with: None Currently or been in a relationship where the following occur: No concerns reported THRIVE Score: 0 ADAM-7 AMB Questionnaire ADAM-7 Date ADAM - 7 assessed: 12/30/24 Source: Developed by Drs. Teo Garcia, Ania Gilliland, Juan Marin and colleagues, with an educational miri from [employer]. Physical exam (Primary Care) Vital Signs: Last Vital Signs Temp 97.5 F 05/12/25 12:01 Pulse 52 05/12/25 12:01 Resp 14 05/12/25 12:01 BP 142/82 H 05/12/25 12:01 Pulse Ox 97 05/12/25 12:01 Oxygen Delivery Method Room Air 05/12/25 12:01 BMI result Body Mass Index 45.3 Tobacco/Smoking Status: Tobacco use Status Tobacco use date assessed 05/12/25 05/12/25 12:05 Patient Tobacco Use Status Never used Tobacco 05/12/25 12:01 e-Cigarette/Vaping Use Never Used 05/12/25 12:01 Thrive Assessment: Date of Thrive Assessment Date Thrive assessed 12/23/24 05/12/25 11:57 Currently or been in a relationship where the following occur: No concerns repo rted Coding Level of Care Code Est Pt Level 4 (80609) Complex EM visit Add On G2211 Diagnoses Atrial fibrillation, unspecified type I48.91 Atrial fibrillation type: unspecified Essential hypertension I10 Hypothyroid E03.9 Hyperparathyroidism E21.3 Chronic anemia D64.9 History of CVA (cerebrovascular accident) Z86.73 Cervicalgia M54.2 Assessment & Plan Assessment & Plan (1) Atrial fibrillation: Code(s): I48.91 - Unspecified atrial fibrillation Category: Medical Qualifiers: Atrial fibrillation type: unspecified Qualified Code(s): I48.91 - Unspecified atrial fibrillation (2) Essential hypertension: Code(s): I10 - Essential (primary) hypertension Category: Medical (3) Hypothyroid: Code(s): E03.9 - Hypothyroidism, unspecified Category: Medical (4) Hyperparathyroidism: Code(s): E21.3 - Hyperparathyroidism, unspecified Category: Medical (5) Chronic anemia: Code(s): D64.9 - Anemia, unspecified Category: Medical (6) History of CVA (cerebrovascular accident): Code(s): Z86.73 - Personal history of transient ischemic attack (TIA), and cerebral infarction without residual deficits Category: Medical (7) Cervicalgia: Code(s): M54.2 - Cervicalgia Category: Medical Plan The patient did not tolerate rosuvastatin and atorvastatin. She will try low- dose lovastatin 10 mg nightly and plan to increase this if she tolerates it. Check lipid profile in 6-8 weeks. Atrial fibrillation, aortic aneurysm-referred to [facility] Cardiology. She would like to transfer care from [facility]. Continue current medications for hypertension. She declined med changes today given her history of adverse reactions and bradycardia on higher doses of metoprolol. Asthma-continue current regimen. She has an upcoming appointment with pulmonology at [facility]. She is followed by Orthopedics for severe osteoarthritis of the knees. Scooter was ordered, and she has been referred for evaluation. Patient will have x-ray of the cervical spine completed. Continue levothyroxine. Check calcium and vitamin-D and PTH. She would like to transfer care to [facility] endocrinology. Referral placed. Follow up in 8 weeks. Orders: Orders Parathyroid Hormone Intact Today E21.3 - Hyperparathyroidism, unspecified Lipid Panel 6 Weeks E78.5 - Hyperlipidemia, unspecified Referrals Endocrinology Referral E03.9 - Hypothyroidism, unspecified, E21.3 - Hyperparathyroidism, unspecified Hematology & Oncology Referral D64.9 - Anemia, unspecified Cardiology Referral I48.91 - Unspecified atrial fibrillation, I71.9 - Aortic aneurysm of unspecified site, without rupture Medications: New lovastatin 10 mg PO BEDTIME 90 tabs 0RF
[2025-05-12 12:01] VITALS: BP 142/82; PULSE 52; RESP 14; TEMP 36.4; O2SAT 97; BMI 45.3
== END 2025-05-12 15:27 | disposition home or self-care (01) ==
LOC: HO.HMCFM 11:41
PROVIDERS: PCP Physician Assistant Medical; Visit Provider Physician Assistant Medical
DX: I48.91 Unspecified atrial fibrillation (principal); I10 Essential (primary) hypertension; E03.9 Hypothyroidism, unspecified; E21.3 Hyperparathyroidism, unspecified; D64.9 Anemia, unspecified; Z86.73 Personal history of transient ischemic attack (TIA), and cerebral infarction without residual deficits; M54.2 Cervicalgia

== ENCOUNTER → 2025-05-12 11:40 | Outpatient (BNVA) | payer MEDICARE, SELFPAY | PROVIDERS: PCP Physician Assistant Medical; Visit Provider Physician Assistant Medical | DX: I48.91 Unspecified atrial fibrillation (principal); I10 Essential (primary) hypertension; E03.9 Hypothyroidism, unspecified; E21.3 Hyperparathyroidism, unspecified; D64.9 Anemia, unspecified; M54.2 Cervicalgia; J45.909 Unspecified asthma, uncomplicated; M17.9 Osteoarthritis of knee, unspecified; I71.9 Aortic aneurysm of unspecified site, without rupture; Z86.73 Personal history of transient ischemic attack (TIA), and cerebral infarction without residual deficits; Z79.899 Other long term (current) drug therapy | CPT/HCPCS: 99212 ==

== ENCOUNTER 2025-05-16 09:49 | Outpatient (REF) | payer MEDICARE, SELFPAY ==
[2025-05-16 11:21] LABS: MANUAL DIFF FLAG NO
[2025-05-16 11:27] LABS: Hematocrit 33.9 % (37.0-47.0); Hemoglobin 10.7 g/dl (12.0-16.0); Imm Gran Abs Auto 0.01 X10*3/uL (0.00-0.03); Imm Gran Pct Auto 0.3 % (0.0-0.4); Lymphocytes Absolute Auto 1.6 X10*3/uL (1.2-4.9); Mean Corpuscular HGB Conc 31.6 g/dl (31.0-35.0); Mean Corpuscular Hemoglobin 31.1 pg (27.0-33.0); Mean Corpuscular Volume 98.5 fL (80.0-98.0); NRBC Abs Auto 0.000 X10*3/uL (0.0-0.012); NRBC Pct Auto 0.0 /100WBC (0.0-0.2); Platelet Count 189 X10*3/uL (160-400); Red Blood Count 3.44 X10*6/uL (4.20-5.50); White Blood Count 4.0 X10*3/uL (4.8-10.8)
[2025-05-16 11:44] LABS: Parathyroid Hormone Intact 172.3 pg/mL (8.7-77.1)
[2025-05-16 12:41] LABS: Calcium 10.9 mg/dL (8.4-10.2); Cholesterol 149 mg/dL (<200); HDL Cholesterol 46 mg/dL (>40); Iron 62 mcg/dL (30-160); Percent Iron Saturation 26 % (15-50); Total Iron Binding Capacity 239 mcg/dL (228-428); Triglycerides 61 mg/dL (<150); Unsaturated Iron Binding 177 ug/dL
[2025-05-16 12:50] LABS: Ferritin 108 ng/mL (10-250)
[2025-05-16 13:03] LABS: Folate 7.1 ng/mL (> or = 4.0); Vitamin B12 1333 pg/mL (200-900)
== END 2025-05-16 09:50 | disposition home or self-care (01) ==
LOC: HO.WFDLDS 09:49
PROVIDERS: Visit Provider Physician Assistant Medical
DX: E83.52 Hypercalcemia (principal); E78.5 Hyperlipidemia, unspecified; D64.9 Anemia, unspecified
CPT/HCPCS: 36415; 80061; 82306; 82310; 82607; 82728; 82746; 83540; 83970; 85025

== ENCOUNTER 2025-05-20 14:49 | Outpatient (AMB) | payer MEDICARE, MEDICAID, SELFPAY ==
[2025-05-20 14:53] VITALS: BP 198/90; PULSE 62; O2SAT 93; BMI 46.1
--- NOTE | 2025-05-20 14:53 | A.OFFVIS_ITS ---
Vital Signs 3 05/20/25 14:53 Height 4 ft 7 in Weight 198 lb 6.656 oz BMI 46.1 BP 198/90 H Blood Pressure Location Rt brachial Position Sitting Pulse 62 Pulse Source Pulse Oximeter Pulse Oximetry (%) 93 Oxygen Delivery Method Room Air Intake Visit Reasons: Hyperparathyroidism, unspecified Intake Note: NEW Patient presents to established treatment for Hyperparathyroidism, unspecified: [employer] Required: No Accompanied by: Son Allergies pneumococcal vaccine Allergy (Unknown, Verified 05/20/25 14:55) unknown amoxicillin Allergy (Verified 05/20/25 14:55) Unknown aspirin Allergy (Verified 05/20/25 14:55) Unknown carvedilol Allergy (Verified 05/20/25 14:55) Unknown chlorthalidone Allergy (Verified 05/20/25 14:55) Unknown clarithromycin Allergy (Verified 05/20/25 14:55) Unknown doxycycline Allergy (Verified 05/20/25 14:55) Unknown dyphylline Allergy (Verified 05/20/25 14:55) Unknown hydrochlorothiazide Allergy (Verified 05/20/25 14:55) Unknown levofloxacin (From Levaquin) Allergy (Verified 05/20/25 14:55) Unknown lisinopril Allergy (Verified 05/20/25 14:55) Unknown loratadine (From Claritin) Allergy (Verified 05/20/25 14:55) Unknown methylprednisolone Allergy (Verified 05/20/25 14:55) Unknown prednisone Allergy (Verified 05/20/25 14:55) Unknown rosuvastatin Allergy (Verified 05/20/25 14:55) Dizziness spironolactone Allergy (Verified 05/20/25 14:55) Unknown tetracycline Allergy (Verified 05/20/25 14:55) Unknown theophylline Allergy (Verified 05/20/25 14:55) Unknown atorvastatin Adverse Reaction (Intermediate, Verified 05/20/25 14:55) myalgias influenza vaccine Allergy (Unknown, Uncoded 05/20/25 14:55) unknown Contrast Dye Allergy (Uncoded 05/20/25 14:55) Unknown Slo-bid Gyrocaps Allergy (Uncoded 05/20/25 14:55) Unknown HPI Comments Details: The patient is a 75-year-old female presenting with hyperparathyroidism and elevated calcium levels. The hyperparathyroidism was identified due to elevated calcium levels noted during laboratory tests conducted in March, with a calcium level of 10.8 mg/dL and a parathyroid hormone level of 172.3 pg/mL. The patient has been experiencing elevated calcium levels for approximately a year and a half, with a previous reading of 11.1 mg/dL. The patient has a history of obstructive sleep apnea, vitamin D deficiency, atrial fibrillation, hypothyroidism, hypertension, and asthma. She also has an aortic aneurysm and osteoarthritis of the knees, which is described as [id number], and making surgical intervention high risk. The patient reports taking vitamin D supplements for almost two years, with a dosage of 1000 IU daily. She avoids dairy products due to concerns about high calcium levels, consuming cheese and yogurt less than three times a week. ROS: - Cardiovascular: Denies chest pain, reports atrial fibrillation. - Respiratory: Denies dyspnea, reports asthma. - Musculoskeletal: Reports osteoarthritis in knees, denies fractures. - Genitourinary: Reports frequent urination during the day, denies nocturia. Physical exam: General: Well appearing. NAD. Not Cushingoid or Acromegalic Neck/Thyroid: Thyroid not palpable, no nodules. Eyes: No conjunctival injection, not lid lag or proptosis CV: RRR, no murmur. No edema. Resp:Lungs clear to auscultation bilaterally Abdomen: Soft, nontender. nondistended Extremities/Neuro: No weakness or tremor of outstretched hands Labs: [facility] Medical History (Updated 04/14/25 @ 14:20 by DALE Flower) Hypercalcemia Facial paresthesia Cervicalgia History of CVA (cerebrovascular accident) Myalgia Paresthesia Morbid obesity Varicose vein of leg Vitamin D deficiency MADISON (obstructive sleep apnea) Aortic aneurysm Atrial fibrillation Hypothyroid Hyperparathyroidism Essential hypertension Elevated alkaline phosphatase level Colon polyp B12 deficiency Chronic anemia Moderate persistent asthma Bilateral primary osteoarthritis of knee Social History (Updated 05/12/25 @ 12:01 by Corazon Cotton MA) Housing: Apartment Alcohol intake: never Patient Tobacco Use Status: Never used Tobacco e-Cigarette/Vaping Use: Never Used Second Hand Smoke Exposure: Yes service: No Current occupational status: retired Current occupational exposures/hazards: No Cognitive needs: No Hearing needs: No Vision needs: No Physical Exam Vital Signs: Last Vital Signs Pulse 62 05/20/25 14:53 BP 198/90 H 05/20/25 14:53 Pulse Ox 93 05/20/25 14:53 Oxygen Delivery Method Room Air 05/20/25 14:53 BMI result Body Mass Index 46.1 Assessment & Plan Assessment & Plan (1) Vitamin D deficiency: Code(s): E55.9 - Vitamin D deficiency, unspecified Category: Medical (2) Hyperparathyroidism: Code(s): E21.3 - Hyperparathyroidism, unspecified Category: Medical Plan: Hyperparathyroidism - The patient has elevated calcium and parathyroid hormone levels, indicating primary hyperparathyroidism. - A detailed diagnostic plan includes a sestamibi parathyroid scan and ultrasound to confirm diagnosis. - Other labs and imaging will be performed to rule out other causes - A referral to a surgeon for potential parathyroidectomy is considered, with discussions on surgical risks and benefits such as infection, bleeding, and hypocalcemia. - The potential impact on the patient's bone health and kidney function is to be monitored. Vitamin D Deficiency - The patient is on vitamin D supplementation, 1000 IU daily. - Monitoring of vitamin D levels is pending, with a follow-up plan in two months to assess the adequacy of current supplementation and adjust as necessary. (3) Hypothyroid: Code(s): E03.9 - Hypothyroidism, unspecified Category: Medical Plan: Hypothyroidism - Discussed hypothyroidism physiology and management strategies with the patient, emphasizing the need for regular monitoring of thyroid levels. - She currently takes LT 50 mcg - Clinically and biochemically euthyroid (4) Morbid obesity: Code(s): E66.01 - Morbid (severe) obesity due to excess calories Category: Medical Plan Weight Loss Management - Discussed the importance of weight loss in managing the patient's overall health and its benefits on bone and cardiovascular health. - Briefly discussed possibility of GLP-1 use for weight loss - Patient requested a referral to Weight Loss Management, which we placed Orders: Orders 2 Comprehensive Met. Panel 05/20/25 E03.9 - Hypothyroidism, unspecified, E21.3 - Hyperparathyroidism, unspecified Calcium, 24 Hr Ur 05/20/25 E21.3 - Hyperparathyroidism, unspecified XR DEXA axial skeleton 05/20/25 E21.3 - Hyperparathyroidism, unspecified US renal BI 05/20/25 E21.3 - Hyperparathyroidism, unspecified Creatinine, 24 Hr Group 05/20/25 E21.3 - Hyperparathyroidism, unspecified US thyroid 05/20/25 E21.3 - Hyperparathyroidism, unspecified Referrals 2 Medical Weight Management Referral E66.01 - Morbid (severe) obesity due to excess calories Patient Instructions: Patient Instructions: 24-Hour Urine Calcium Collection Purpose: This test measures the amount of calcium excreted in your urine over a 24-hour period. It helps evaluate calcium metabolism and diagnose certain conditions. Preparation: * Diet:?Unless instructed otherwise, continue your usual diet. If your provider has given you specific dietary instructions (e.g., avoid high-calcium foods), please follow them. * Medications:?Take your medications as usual unless told otherwise. * Hydration:?Drink fluids as you normally would. Collection Instructions: * Obtain Supplies: You will receive a large collection container from the laboratory. If not, please request one. * Start of Collection: * Choose a day to begin the collection, preferably a day you will be at home. * Upon waking,?urinate into the toilet?(do not collect this first morning urine). * Note the exact time. This is your start time. * During the Next 24 Hours: * Collect?all urine?you pass into the provided container. * Each time you urinate, do so into a clean container (if needed), then pour it into the large collection container. * Store the container in a cool place, preferably in a refrigerator or on ice. * End of Collection: * Exactly 24 hours after your start time,?urinate one last time?and add this urine to the container. * This completes the collection. * After Collection: * Ensure the lid is tightly closed. * Label the container with your name, date, and start/end times. * Return the container to the laboratory as soon as possible. Important Reminders: * Do not miss any urine during the 24 hours.?Missing even one sample will make the test inaccurate. * Do not allow toilet paper, stool, or other materials?to get into the urine collection container. * If you accidentally miss a collection, contact the laboratory or your provider for further instructions. For more information about hyperparathyroidism please read: [email or web address] Coding Level of Care Code New Pt Level 5 (71033) Diagnoses Vitamin D deficiency E55.9 Hyperparathyroidism E21.3 Hypothyroid E03.9 Morbid obesity E66.01 Time Spent (min) 60 Comment Time spent on review of previous records, history, exam/plan and patient education.
== END 2025-05-20 16:03 | disposition home or self-care (01) ==
LOC: HO.ENCR 14:50
PROVIDERS: PCP Physician Assistant Medical; Visit Provider Student in an Organized Health Care Education/Training Program
DX: E66.01 Morbid (severe) obesity due to excess calories (principal); E55.9 Vitamin D deficiency, unspecified; E21.3 Hyperparathyroidism, unspecified; E03.9 Hypothyroidism, unspecified
CPT/HCPCS: 99205

== ENCOUNTER → 2025-05-20 14:49 | Outpatient (BNVA) | payer MEDICARE, SELFPAY | PROVIDERS: PCP Physician Assistant Medical; Visit Provider Student in an Organized Health Care Education/Training Program | DX: E55.9 Vitamin D deficiency, unspecified (principal); E21.3 Hyperparathyroidism, unspecified; E03.9 Hypothyroidism, unspecified; E66.01 Morbid (severe) obesity due to excess calories; Z68.42 Body mass index [BMI] 45.0-49.9, adult | CPT/HCPCS: 99202 ==

== ENCOUNTER 2025-05-30 13:22 | Outpatient (REF) | payer MEDICARE, MEDICAID, SELFPAY ==
[2025-05-30 18:07] LABS: MANUAL DIFF FLAG NO
[2025-05-30 18:40] LABS: Hematocrit 34.2 % (37.0-47.0); Hemoglobin 11.0 g/dl (12.0-16.0); Imm Gran Abs Auto 0.01 X10*3/uL (0.00-0.03); Imm Gran Pct Auto 0.3 % (0.0-0.4); Lymphocytes Absolute Auto 1.4 X10*3/uL (1.2-4.9); Mean Corpuscular HGB Conc 32.2 g/dl (31.0-35.0); Mean Corpuscular Hemoglobin 31.8 pg (27.0-33.0); Mean Corpuscular Volume 98.8 fL (80.0-98.0); NRBC Abs Auto 0.000 X10*3/uL (0.0-0.012); NRBC Pct Auto 0.0 /100WBC (0.0-0.2); Platelet Count 201 X10*3/uL (160-400); Red Blood Count 3.46 X10*6/uL (4.20-5.50); White Blood Count 3.6 X10*3/uL (4.8-10.8)
[2025-06-03 02:28] LABS: Class Alternaria alternata 0; Class Aspergillus fumigatus 0; Class Bermuda Grass 0; Class Birch 0; Class Cat Dander 0; Class Cladosporium herbarum 0; Class Cockroach 0; Class Common Ragweed 2; Class Cottonwood 0; Class Derm. pterony 0; Class Dermatophagoides farinae 0; Class Dog Dander 0; Class Elm 0; Class Maple Box Elder 0; Class Mountain Cedar 0; Class Mouse Urine Protein 0; Class Mugwort 0; Class Oak 0; Class Penicillium crysogenum 0; Class Rough Pigweed 0; Class Sheep Sorrel 0; Class Sycamore 0; Class Timothy Grass 0; Class Walnut Tree 0; Class White Ash 0; Class White Mulberry 0; D002 - IgE D farinae <0.10 kU/L; E001 - IgE Cat Dander <0.10 kU/L; E005 - IgE Dog Dander <0.10 kU/L; G006 - IgE Timothy Grass <0.10 kU/L; I006-IgE Cockroach, German <0.10 kU/L; M002 - IgE Cladosporium herbar <0.10 kU/L; M003 - IgE Aspergillus fumigat <0.10 kU/L; M006 - IgE Alternaria alternat <0.10 kU/L; T001 IgE Maple/Box Elder <0.10 kU/L; T006 - IgE Cedar, Mountain <0.10 kU/L; T007 - IgE Oak, White <0.10 kU/L; T008 IgE Elm, American <0.10 kU/L; T010 - IgE Walnut <0.10 kU/L; T011 - IgE Maple Leaf Sycamore <0.10 kU/L; T014 - IgE Cottonwood <0.10 kU/L; T015 - IgE Ash, White <0.10 kU/L; T070 - IgE White Mulberry <0.10 kU/L; W001 - IgE Ragweed, Short 0.96 kU/L; W006 - IgE Mugwort <0.10 kU/L; W014 IgE Pigweed, Common <0.10 kU/L; W018 IgE Sheep Sorrel <0.10 kU/L
[2025-06-09 15:29] LABS: Canary Droppings Ab Negative (Negative); Chicken Serum Ab Negative (Negative); Cockatiel Droppings Ab Negative (Negative); Finch Droppings Ab Negative (Negative); Parakeet Droppings Ab Negative (Negative); Parakeet Serum Ab Negative (Negative); Parrot Droppings Ab Negative (Negative); Parrot Serum Ab Negative (Negative); Pigeon/Dove Droppings Ab Negative (Negative); Pigeon/Dove Serum Ab Negative (Negative)
== END 2025-05-30 13:23 | disposition home or self-care (01) ==
LOC: HO.WFDLDS 13:22
PROVIDERS: PCP Physician Assistant Medical; Referring Provider Physician Assistant Medical; Visit Provider Nurse Practitioner Family
DX: Z91.09 Other allergy status, other than to drugs and biological substances (principal)
CPT/HCPCS: 36415; 82785; 85025; 86003; 86331; 99202

== ENCOUNTER 2025-05-30 13:22 | Outpatient (AMB) | payer MEDICARE, MEDICAID, SELFPAY ==
[2025-05-30 13:30] VITALS: BP 178/80; PULSE 53; O2SAT 96; BMI 46.1
--- NOTE | 2025-05-30 13:30 | A.OFFVIS_ITS ---
Vital Signs 05/30/25 13:30 Height 4 ft 7 in Weight 198 lb 6 oz BMI 46.1 BP 178/80 H Blood Pressure Location Rt brachial Position Sitting Pulse 53 Pulse Source Pulse Oximeter Pulse Oximetry (%) 96 Oxygen Delivery Method Room Air Intake Visit Reasons: Asthma/MADISON Allergies pneumococcal vaccine Allergy (Unknown, Verified 05/30/25 13:34) unknown amoxicillin Allergy (Verified 05/30/25 13:34) Unknown aspirin Allergy (Verified 05/30/25 13:34) Unknown carvedilol Allergy (Verified 05/30/25 13:34) Unknown chlorthalidone Allergy (Verified 05/30/25 13:34) Unknown clarithromycin Allergy (Verified 05/30/25 13:34) Unknown doxycycline Allergy (Verified 05/30/25 13:34) Unknown dyphylline Allergy (Verified 05/30/25 13:34) Unknown hydrochlorothiazide Allergy (Verified 05/30/25 13:34) Unknown levofloxacin (From Levaquin) Allergy (Verified 05/30/25 13:34) Unknown lisinopril Allergy (Verified 05/30/25 13:34) Unknown loratadine (From Claritin) Allergy (Verified 05/30/25 13:34) Unknown methylprednisolone Allergy (Verified 05/30/25 13:34) Unknown prednisone Allergy (Verified 05/30/25 13:34) Unknown rosuvastatin Allergy (Verified 05/30/25 13:34) Dizziness spironolactone Allergy (Verified 05/30/25 13:34) Unknown tetracycline Allergy (Verified 05/30/25 13:34) Unknown theophylline Allergy (Verified 05/30/25 13:34) Unknown atorvastatin Adverse Reaction (Intermediate, Verified 05/30/25 13:34) myalgias beets Allergy (Mild, Uncoded 05/30/25 13:35) Itching influenza vaccine Allergy (Unknown, Uncoded 05/30/25 13:34) unknown Contrast Dye Allergy (Uncoded 05/30/25 13:34) Unknown Slo-bid Gyrocaps Allergy (Uncoded 05/30/25 13:34) Unknown HPI HPI Asthma/MADISON: Details: Symone is a pleasant 75 year old female, never smoker, with underlying asthma and MADISON. She was referred by PCP for pulmonary evaluation. She was previously under the care of Dr. Zavala and interested in transferring to this office for further management. The patient has a long-standing history of asthma, first diagnosed in 1976. She has experienced severe asthma attacks requiring intubation on four occasions, primarily due to adverse reactions to medications. 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 She reports adverse effects to prednisone as well as methylprednisolone. The patient utilizes a nebulizer at home, typically using it twice daily, and has been prescribed Breo and albuterol for asthma management. She reports improvement in her respiratory symptoms since moving from [place], where environmental factors exacerbated her condition. She does have a bird and dog at home however does not feel exposures worsen asthma. The patient also has a history of sleep apnea, for which she uses a CPAP machine nightly. The CPAP machine settings have been adjusted from a pressure of 11 to 8, and she reports compliance with its use however continues with daytime fatigue. She reports last sleep study years ago and has not had any one monitoring CPAP therapy in quite some time. D[facility] is [facility]. Additionally, the patient has atrial fibrillation and is monitored by a risk control representative. She has a stable aneurysm, as confirmed by a recent CT scan, and is under regular surveillance for this condition. [facility] Medical History (Updated 06/01/25 @ 21:01 by Lu Ponce NP) Hypercalcemia Facial paresthesia Cervicalgia History of CVA (cerebrovascular accident) Myalgia Paresthesia Morbid obesity Varicose vein of leg Vitamin D deficiency MADISON (obstructive sleep apnea) Aortic aneurysm Atrial fibrillation Hypothyroid Hyperparathyroidism Essential hypertension Elevated alkaline phosphatase level Colon polyp B12 deficiency Chronic anemia Moderate persistent asthma Bilateral primary osteoarthritis of knee Social History Housing: Apartment Alcohol intake: never Patient Tobacco Use Status: Never used Tobacco e-Cigarette/Vaping Use: Never Used Second Hand Smoke Exposure: Yes service: No Current occupational status: retired Current occupational exposures/hazards: No Cognitive needs: No Hearing needs: No Vision needs: No Review of Systems Const Denies chills, Denies excessive sweating, Denies fever(s), Denies headache(s) and Denies night sweats Eyes Denies dry eyes, Denies irritation and Denies itchy eyes ENT Reports Normal hearing present, Denies headache(s), Denies nasal congestion, Denies nasal discharge, Denies post nasal drip and Denies sore throat Card Denies chest pain, Denies chest pain at rest, Denies chest pain with activity, Denies claudication, Denies leg edema, Denies dyspnea, Denies dyspnea on exertion, Denies orthopnea and Denies paroxysmal nocturnal dyspnea Resp Denies chest congestion, Denies cough, Denies excessive phlegm production, Denies pain on inspiration, Denies pain with cough, Denies dyspnea, Denies dyspnea on exertion, Denies stridor and Denies wheezing Musc Denies myalgias Neuro Reports Normal hearing present and Denies headache(s) Endo Denies excessive sweating Carlo/Lymph Denies lymphadenopathy Aller/Immun Denies itchy eyes, Denies seasonal rhinorrhea and Denies wheezing Physical Exam Vital Signs: Last Vital Signs Pulse 53 05/30/25 13:30 BP 178/80 H 05/30/25 13:30 Pulse Ox 96 05/30/25 13:30 Oxygen Delivery Method Room Air 05/30/25 13:30 BMI result Body Mass Index 46.1 Const General: cooperative, healthy appearing, comfortable, no acute distress, well developed and alert Nutritional Appearance: obese Orientation/consciousness: patient oriented x3 Limitations: no limitations HEENT Head: Yes normal to inspection, Yes normocephalic and Yes atraumatic Ears: hearing grossly normal bilaterally and external ears normal Eyes General: appearance normal, both eyes and all related structures Eyelids: Yes eyelids normal Sclerae: sclerae normal EOM: EOMs intact bilaterally Neck Neck: Yes normal visual inspection and Yes no lymphadenopathy Lymphatic: no lymphadenopathy noted Chest Chest palpation & inspection: normal inspection of the chest Resp Effort & Inspection: normal respiratory effort, able to speak in complete sentences, no audible wheezes, no cough, no stridor, not tachypneic, no tripod positioning and no use of accessory muscles Auscultation: clear to auscultation bilaterally Cardio Jugular venous distension: no JVD Rate: regular rate Rhythm: regular rhythm Skin Other: warm, dry General skin exam: no rashes or lesions noted Neuro General: patient oriented x3 Cranial nerves: Yes Normal hearing present Cognition (Neuro): normal cognition Gait exam (Neuro): Normal gait present Extrem General: Yes normal to inspection, Yes capillary refill normal, Yes no clubbing, cyanosis or edema and Yes no pedal edema Psych Appearance: grossly normal and well kempt Speech and movement: Normal speech and movement present and Clear speech present Affect: normal affect Attitude: cooperative Thought process: Normal thought process present Thought content: Normal thought content present Insight: Good insight present (Psych) Judgement: Good judgement present (Psych) Assessment & Plan Assessment & Plan (1) Asthma: Code(s): J45.909 - Unspecified asthma, uncomplicated Category: Medical (2) Environmental allergies: Code(s): Z91.09 - Other allergy status, other than to drugs and biological substances Category: Medical (3) MADISON (obstructive sleep apnea): Code(s): G47.33 - Obstructive sleep apnea (adult) (pediatric) Category: Medical (4) Daytime somnolence: Code(s): R40.0 - Somnolence Category: Medical Plan Discussed with the patient the importance of continuing her current asthma medications, Breo and albuterol, and provided refills for both. Will send for updated PFT to evaluate her overall lung function and a repeat sleep study to reestablish MADISON diagnosis. May need to send for in lab titration study to ensure optimal pressures. Recommended allergy testing to assess for allergic component. Recent Chest CT revealed mild linear atelectasis of RML and lingula, with mild dialation of pulmonary artery as well as aortic aneurysm that is being followed by cardiology, Dr. Morocho. Last echo 2020 revealed mild diastolic dysfunction with RVSP 37. Will repeat echo to assess pulmonary pressures. All questions were answered and patient is in agreement of plan. Will follow-up to review results or sooner if needed. Orders: Orders Complete Blood Count Auto Diff 05/30/25 Z.09 - Other allergy status, other than to drugs and biological substances Resp Allergy Profile Region I 05/30/25 Z91.09 - Other allergy status, other than to drugs and biological substances Immunoglobulin E 05/30/25 Z91.09 - Other allergy status, other than to drugs and biological substances Other Ref Test - Misc 05/30/25 Z91.09 - Other allergy status, other than to drugs and biological substances PFT pulmonary function test Today J45.909 - Unspecified asthma, uncomplicated RT home sleep study Today R40.0 - Somnolence CA echo transthoracic complete Today I27.20 - Pulmonary hypertension, unspecified Medications: New albuterol sulfate 2.5 mg (3 mL) inhalation Q4-6H PRN 180 mL 2RF shortness of breath or wheezing fluticasone furoate-vilanterol 100-25 mcg/dose (Breo Ellipta) 1 inh inhalation DAILY 60 ea 3RF albuterol sulfate 90 mcg/actuation 2 puffs inhalation Q6H PRN 1 ea 3RF shortness of breath or wheezing Coding Level of Care Code New Pt Level 4 (55782) Complex EM visit Add On G2211 Diagnoses Asthma J45.909 Environmental allergies Z91.09 MADISON (obstructive sleep apnea) G47.33 Daytime somnolence R40.0
== END 2025-05-30 14:00 | disposition home or self-care (01) ==
LOC: HO.HPSW 13:22
PROVIDERS: PCP Physician Assistant Medical; Referring Provider Physician Assistant Medical; Visit Provider Nurse Practitioner Family
DX: J45.909 Unspecified asthma, uncomplicated (principal); Z91.09 Other allergy status, other than to drugs and biological substances; G47.33 Obstructive sleep apnea (adult) (pediatric); R40.0 Somnolence
CPT/HCPCS: 99204; G2211

== ENCOUNTER 2025-06-02 09:02 | Outpatient (REF) | payer MEDICARE, MEDICAID, SELFPAY ==
--- NOTE | ~2025-06-02 | MM_ITS ---
EXAMINATION: DXA BONE DENSITY EXTREMITY HISTORY: E21.3 HYPERPARATHYROIDISM TECHNIQUE: [employer] Dual energy absorptiometry (DEXA) of the lumbar spine, total left hip, femoral neck, and distal forearm was performed. COMPARISON: There are no prior studies for comparison. FINDINGS: The bone mineral density of the lumbar spine is 1.096 g/cm2, corresponding to a T-score of -0.7, and a Z-score of 0.3. This is indicative of normal bone mineral density. The bone mineral density of the left total hip is 0.882 g/cm2, corresponding to a T-score of -1.0, and a Z-score of 0.2. This is indicative of normal bone mineral density. The bone mineral density of the left femoral neck is 0.829 g/cm2, corresponding to a T-score of -1.5, and a Z-score of 0.0. This is indicative of osteopenia. The bone mineral density of the distal forearm is 0.741 g/cm2, corresponding to a T-score of -1.5, and a Z-score of 0.7. This is indicative of osteopenia. FRACTURE RISK: The FRAX index suggests a risk of major osteoporotic fracture of 5.5%, and of hip fracture 1.0%. MM/XR DEXA appendicular skeleton IMPRESSION: Based on bone mineral density, and according to World Health Organization (WHO) criteria, the diagnosis is consistent with osteopenia. Statistically, 68% of repeat scans fall within 1 SD (+/- 0.010 g/cm2 for AP spine L1-L4) and 1 SD (+/- 0.012 g/cm2 for femur total) FRAX is a trademark of the [employer], a World Health Organization (WHO) Collaborating Center. Electronically signed by: Teo Bhagat MD 06/02/2025 10:08 AM EDT
== END 2025-06-02 09:03 | disposition home or self-care (01) ==
LOC: HO.MAMMO 09:02
PROVIDERS: Visit Provider Student in an Organized Health Care Education/Training Program
DX: E21.3 Hyperparathyroidism, unspecified (principal)
CPT/HCPCS: 77081

== ENCOUNTER → 2025-06-02 09:15 | Outpatient (BNV) | payer MEDICARE, MEDICAID, SELFPAY | PROVIDERS: Visit Provider Radiology Diagnostic Radiology | DX: E28.39 Other primary ovarian failure (principal) | CPT/HCPCS: 77081 ==

== ENCOUNTER → 2025-06-02 14:55 | Outpatient (BNV) | payer MEDICARE, MEDICAID, SELFPAY | PROVIDERS: PCP Physician Assistant Medical; Referring Provider Physician Assistant Medical; Visit Provider Internal Medicine | DX: D64.9 Anemia, unspecified (principal); D72.819 Decreased white blood cell count, unspecified | CPT/HCPCS: 99204; G2211 ==

== ENCOUNTER 2025-06-16 09:25 | Outpatient (REF) | payer MEDICARE, MEDICAID, SELFPAY ==
[2025-06-16 11:57] LABS: Alanine Aminotransferase 15 U/L (0-31); Albumin Level 4.4 g/dL (3.5-5.0); Alkaline Phosphatase 61 U/L (39-117); Anion Gap 11 (12-20); Aspartate Amino Transferase 18 U/L (5-31); Blood Urea Nitrogen 28 mg/dL (9-16); Calcium 10.5 mg/dL (8.4-10.2); Carbon Dioxide 27 mmol/L (22-29); Chloride 105 mmol/L (96-108); Estimated Glomerular Filt Rate > 60; Potassium 4.3 mmol/L (3.3-5.1); Sodium 139 mmol/L (135-145); Total Protein 6.9 g/dL (6.5-8.0)
[2025-06-16 12:37] LABS: Creatinine, mg/dL 21.40
[2025-06-16 14:09] LABS: Total Volume 24 Hour Urine 3000 mL
[2025-06-18 18:59] LABS: Calcium/Creatinine Ratio 165 mg/g creat (30-275); Creatinine 24Hr Urine 0.78 g/24 h (0.50-2.15)
== END 2025-06-16 09:26 | disposition home or self-care (01) ==
LOC: HO.WFDLDS 09:25
PROVIDERS: Referring Provider Physician Assistant Medical; Visit Provider Student in an Organized Health Care Education/Training Program
DX: E21.3 Hyperparathyroidism, unspecified (principal); E03.9 Hypothyroidism, unspecified
CPT/HCPCS: 36415; 80053; 82340; 82570

== ENCOUNTER 2025-07-01 14:50 | Outpatient (AMB) | payer MEDICARE, MEDICAID, SELFPAY ==
--- NOTE | 2025-07-01 14:53 | A.OFFVIS_ITS ---
Vital Signs 07/01/25 14:59 Height 4 ft 9 in Weight 193 lb 3.382 oz BMI 41.8 BP 146/70 H Blood Pressure Location Rt brachial Position Sitting Pulse 61 Pulse Source Pulse Oximeter Pulse Oximetry (%) 96 Oxygen Delivery Method Room Air Intake Visit Reasons: Hyperparathyroidism Intake Note: Patient presents here today for Hyperparathyroidism follow-up after completion of work-up. Comprehensive Met, Calcium, 24 Hr Ur & Creatinine, 24 Hr: Completed 06/16/2025 XR DEXA axial skeleton: Completed on 06/02/2025 renal BI: Scheduled on 07/15/2025 thyroid: Scheduled on 07/15/2025 Bedspread Inspector Required: No Accompanied by: Self / Same As Patient Allergies pneumococcal vaccine Allergy (Unknown, Verified 07/01/25 15:05) unknown amoxicillin Allergy (Verified 07/01/25 15:05) Unknown aspirin Allergy (Verified 07/01/25 15:05) Unknown carvedilol Allergy (Verified 07/01/25 15:05) Unknown chlorthalidone Allergy (Verified 07/01/25 15:05) Unknown clarithromycin Allergy (Verified 07/01/25 15:05) Unknown doxycycline Allergy (Verified 07/01/25 15:05) Unknown dyphylline Allergy (Verified 07/01/25 15:05) Unknown hydrochlorothiazide Allergy (Verified 07/01/25 15:05) Unknown levofloxacin (From Levaquin) Allergy (Verified 07/01/25 15:05) Unknown lisinopril Allergy (Verified 07/01/25 15:05) Unknown loratadine (From Claritin) Allergy (Verified 07/01/25 15:05) Unknown methylprednisolone Allergy (Verified 07/01/25 15:05) Unknown prednisone Allergy (Verified 07/01/25 15:05) Unknown rosuvastatin Allergy (Verified 07/01/25 15:05) Dizziness spironolactone Allergy (Verified 07/01/25 15:05) Unknown tetracycline Allergy (Verified 07/01/25 15:05) Unknown theophylline Allergy (Verified 07/01/25 15:05) Unknown atorvastatin Adverse Reaction (Intermediate, Verified 07/01/25 15:05) myalgias beets Allergy (Mild, Uncoded 07/01/25 15:05) Itching influenza vaccine Allergy (Unknown, Uncoded 07/01/25 15:05) unknown Contrast Dye Allergy (Uncoded 07/01/25 15:05) Unknown Slo-bid Gyrocaps Allergy (Uncoded 07/01/25 15:05) Unknown Medication List - Last Reconciled 07/01/25 by Edyta Snow MD albuterol sulfate 2.5 mg (3 mL) inhalation Q4-6H PRN albuterol sulfate 90 mcg/actuation 2 puffs inhalation Q6H PRN apixaban (Eliquis) 5 mg PO BID cholecalciferol (vitamin D3) 50 mcg PO DAILY cyanocobalamin (vitamin B-12) 1,000 mcg PO DAILY ferrous sulfate 325 mg PO DAILY fluticasone furoate-vilanterol 100-25 mcg/dose (Breo Ellipta) 1 inh inhalation DAILY levothyroxine 25 mcg PO DAILY lovastatin 10 mg PO BEDTIME metoprolol succinate ER 25 mg PO DAILY miscellaneous medical supply 1 ea miscellaneous DAILY valsartan 320 mg PO DAILY HPI Comments Details: The patient is a 75-year-old female presenting with hyperparathyroidism and elevated calcium levels. The hyperparathyroidism was identified due to elevated calcium levels noted during laboratory tests conducted in March, with a calcium level of 10.8 mg/dL and a parathyroid hormone level of 172.3 pg/mL. The patient has been experiencing elevated calcium levels for approximately a year and a half, with a previous reading of 11.1 mg/dL. The patient has a history of obstructive sleep apnea, vitamin D deficiency, atrial fibrillation, hypothyroidism, hypertension, and asthma. She also has an aortic aneurysm and osteoarthritis of the knees, which is described as [id number], and making surgical intervention high risk. The patient reports taking vitamin D supplements for almost two years, with a dosage of 1000 IU daily. She avoids dairy products due to concerns about high calcium levels, consuming cheese and yogurt less than three times a week. Interval history: Reports feeling overall well No falls or fractures Now taking about 1000mg calcium daily Takes vitamin D 2000 IU daily Physical exam: General: Well appearing. Neck/Thyroid: Thyroid not palpable, no nodules. Eyes: No conjunctival injection, not lid lag or proptosis CV: RRR, no murmur. No edema. Resp:Lungs clear to auscultation bilaterally Abdomen: Soft, nontender. nondistended Extremities/Neuro: No weakness or tremor of outstretched hands Laboratory Tests 04/10/25 05/16/25 06/16/25 15:49 09:51 09:27 Creatinine 0.75 0.69 Estimated GFR > 60 > 60 Calcium 10.8 H 10.9 H 10.5 H Alkaline Phosphatase 78 61 Albumin 4.7 4.4 25-OH Vitamin D Total 29 L PTH Intact 172.3 H Laboratory Tests 06/16/25 08:00 Ur 24 Hour Volume 3000 Ur Creatinine mg/dL 21.40 Ur Creatinine 24 Hour 0.6 L Ur Calcium 24 Hr 129 Calcium/Creat 24 Hr 165 Imaging DEXA 06/02/2025 FINDINGS: The bone mineral density of the lumbar spine is 1.096 g/cm2, corresponding to a T-score of -0.7, and a Z-score of 0.3. This is indicative of normal bone mineral density. The bone mineral density of the left total hip is 0.882 g/cm2, corresponding to a T-score of -1.0, and a Z-score of 0.2. This is indicative of normal bone mineral density. The bone mineral density of the left femoral neck is 0.829 g/cm2, corresponding to a T-score of -1.5, and a Z-score of 0.0. This is indicative of osteopenia. The bone mineral density of the distal forearm is 0.741 g/cm2, corresponding to a T-score of -1.5, and a Z-score of 0.7. This is indicative of osteopenia. FRACTURE RISK: The FRAX index suggests a risk of major osteoporotic fracture of 5.5%, and of hip fracture 1.0%. IMPRESSION: Based on bone mineral density, and according to World Health Organization (WHO) criteria, the diagnosis is consistent with osteopenia. [facility] Medical History Hypercalcemia Facial paresthesia Cervicalgia History of CVA (cerebrovascular accident) Myalgia Paresthesia Morbid obesity Varicose vein of leg Vitamin D deficiency MADISON (obstructive sleep apnea) Aortic aneurysm Atrial fibrillation Hypothyroid Hyperparathyroidism Essential hypertension Elevated alkaline phosphatase level Colon polyp B12 deficiency Chronic anemia Moderate persistent asthma Bilateral primary osteoarthritis of knee Social History Household Members: Children Housing: Apartment Alcohol intake: never Patient Tobacco Use Status: Never used Tobacco e-Cigarette/Vaping Use: Never Used Second Hand Smoke Exposure: Yes service: No Current occupational status: retired Current occupational exposures/hazards: No Cognitive needs: No Hearing needs: No Vision needs: No Physical Exam Vital Signs: Last Vital Signs Pulse 61 07/01/25 14:59 BP 146/70 H 07/01/25 14:59 Pulse Ox 96 07/01/25 14:59 Oxygen Delivery Method Room Air 07/01/25 14:59 BMI result Body Mass Index 41.8 Assessment & Plan Assessment & Plan (1) Vitamin D deficiency: Code(s): E55.9 - Vitamin D deficiency, unspecified Category: Medical (2) Hyperparathyroidism: Code(s): E21.3 - Hyperparathyroidism, unspecified Category: Medical Plan: Hyperparathyroidism Possibly secondary to vitamin D deficiency, but mildly elevated hypercalcemia is not typical in these cases. Less likely primary hyperparathyroidism, but other labs are needed to better assess this possibility. Her bone density scan did not show any evidence of osteoporosis, her kidney ultr asound is pending, but patient does not have any history of symptomatic nephrolithiasis. Other diagnoses like hypercalcemia malignancy seems less likely given that PTH is elevated and expected to be suppressed in this situation. Unfortunately the urine collection was not appropriate, so we can not assess her urine calcium. Plan Advised the patient to increase vitamin-D to 3000 IU daily Counseled in regards to for prevention Advised the patient to take calcium to a maximum of 100-1000 mg daily We will repeat labs including 24 hours urine calcium We will follow-up the patient in 2 months Plan 20 minutes spent reviewing previous records, labs, imaging, education and documenting in the chart Orders: Orders Calcium, 24 Hr Ur Today E21.3 - Hyperparathyroidism, unspecified, E55.9 - Vitamin D deficiency, unspecified Creatinine, 24 Hr Group Today E21.3 - Hyperparathyroidism, unspecified, E55.9 - Vitamin D deficiency, unspecified Parathyroid Hormone Intact Today E21.3 - Hyperparathyroidism, unspecified, E55.9 - Vitamin D deficiency, unspecified Vitamin D 25-OH Total Today E21.3 - Hyperparathyroidism, unspecified, E55.9 - Vitamin D deficiency, unspecified Phosphorus Today E21.3 - Hyperparathyroidism, unspecified, E55.9 - Vitamin D deficiency, unspecified Comprehensive Met. Panel Today E21.3 - Hyperparathyroidism, unspecified, E55.9 - Vitamin D deficiency, unspecified Patient Instructions: Please have the blood work repeated at [facility], [address] [place] [address], [place] [address] 24-Hour Urine Calcium Collection Instructions Purpose: This test measures the amount of calcium excreted in your urine over a 24-hour period. It helps evaluate calcium metabolism and diagnose certain conditions. Supplies Needed: 24-hour urine collection container (provided by the lab or clinic) Urine hat or collection device (optional, for easier collection) Written instructions (this sheet) Instructions: Start the Collection: Choose a day when you can be at home or have easy access to a bathroom. Upon waking up on the first day, urinate and discard this first morning urine. Do not collect this sample. Note the exact time?this is your start time. Collect All Urine: For the next 24 hours, collect all urine you pass into the provided container. Each time you urinate, collect it in a clean container and transfer it to the 24-hour collection jug. Store the collection container in a cool place, preferably in a refrigerator or on ice, during the collection period. Finish the Collection: Exactly 24 hours after your start time, urinate one last time and add this urine to the container. This completes the collection. After Collection: Ensure the lid is tightly closed. Label the container with your name, date, and start/end times. Return the container to the laboratory or your physician?s office as soon as possible after completion. Important Tips: Do not miss any urine during the 24-hour period. If you do, the test may need to be repeated. Do not allow toilet paper, stool, or other materials to get into the urine sample. Continue your usual diet unless instructed otherwise. Some tests may require you to avoid certain foods or medications?follow any additional instructions provided by your physician. Coding Level of Care Code Est Pt Level 3 (97954) Diagnoses Vitamin D deficiency E55.9 Hyperparathyroidism E21.3
[2025-07-01 14:59] VITALS: BP 146/70; PULSE 61; O2SAT 96; BMI 41.8
--- OUTSIDE RECORDS SUMMARY | 2025-07-01 17:55 | XMS_ITS | Clinical Summary ---
Author Organization [facility] Address [address] [place] [address] Phone Care Team Providers Care Communication And Outreach Manager Name Role Phone Zahira Willingham Primary Care Provide r Encounters Date Type Department Care Team Description 06/05/2025 Transcribe Orders [facility] Services [address] [place] [address] Zahira Willingham PA Encounter for rehabilitation (Primary Dx) from Last 3 Months Social History Tobacco Use Types Packs/Day Years Used Date Smoking Tobacco: Never Assessed Education Answer Date Recorded Are you interested in more education? Not on gerson e 06/11/2025 Are you concerned about learning? Not on file 06/11/2025 No 06/11/2025 No 06/11/2025 Digital Access Answer Date Recorded No 06/11/2025 No 06/11/2025 Reliable internet access at home? Not on file 06/11/2025 Device with a working camera? Not on file Comments Unknown Sex and Gender Information Value Date Recorded Sex Assigned at Not on file Legal Sex Female 10:03 AM EDT Gender Identity Not on file Sexual Orientation Not on file Plan of Treatment Upcoming Encounters Date Type Department Care Team (Late st Contact Info) Description 07/08/2025 11:00 AM EST Office Visit [facility] [address] [place] [address] Zahira Willingham PA [address] [place] [address] Joann Lomeli, OT [address] [place] [address] Health Maintenance Due Date Last Done Comments Adult Td,Tdap Booster 1950 LIPID PANEL 1950 DEPRESSION SCREENING 1962 SMOKING Hx and SMOKELESS TOB ACCO SCREENING 1963 HEPATITIS C SCREENING 1968 COLOGUARD 1995 COLONOSCOPY 1995 COLORECTAL CANCER SCREENING 1995 FIT TEST 1995 FOBT 1995 SIGMOIDOSCOPY 1995 VIRTUAL COLONOSCOPY 1995 PNEUMOCOCCAL VACCINES (50+ y ears) (1 of 1 - PCV) 2000 ZOSTER VACCINES (1 of 2) 2000 OSTEOPOROSIS SCREENING INITI AL (ONE-TIME) 2015 RSV VACCINE (1 - 1-dose 75+ series) 2025 INFLUENZA VACCINE (#1) 2025 COVID-19 VACCINE (1 - 2024-2 6 season) 2025 HEPATITIS A VACCINES Aged Out No long er eligible based on patient's age to complete this topic HIB VACCINES Aged Out No longer eligi ble based on patient's age to complete this topic MENINGOCOCCAL VACCINES (ACWY) Aged Out No longer eligible based on patient's age to complete this topic MENINGOCOCCAL VACCINES (B) Aged Out N o longer eligible based on patient's age to complete this topic Medical Devices Not on file Insurance MEDICARE PART A & B [place] [facility] & B [facility] PART A & [facility] Care Teams Communication And Outreach Manager Relationship Specialty Start Date End Date Zahira Willingham PA [address] [place] [phone] PCP - General Physician Health Science Specialist 05/20/25 Additional Source Comments The information contained in this document represents components of the legal health record. It is not the complete legal health record.[facility]
== END 2025-07-01 15:34 | disposition home or self-care (01) ==
LOC: HO.ENCR 14:51
PROVIDERS: PCP Physician Assistant Medical; Visit Provider Student in an Organized Health Care Education/Training Program
DX: E55.9 Vitamin D deficiency, unspecified (principal); E21.3 Hyperparathyroidism, unspecified
CPT/HCPCS: 99213

== ENCOUNTER → 2025-07-01 14:50 | Outpatient (BNVA) | payer MEDICARE, SELFPAY | PROVIDERS: PCP Physician Assistant Medical; Visit Provider Student in an Organized Health Care Education/Training Program | DX: E21.3 Hyperparathyroidism, unspecified (principal); E55.9 Vitamin D deficiency, unspecified | CPT/HCPCS: 99212 ==

== ENCOUNTER 2025-07-14 14:50 | Outpatient (AMB) | payer MEDICARE, MEDICAID, SELFPAY ==
--- NOTE | 2025-07-14 14:54 | A.OFFPC_ITS ---
Vital Signs 07/14/25 15:00 07/14/25 15:13 Height 4 ft 8 in Weight 202 lb 6 oz BMI 45.4 BP 201/77 H 176/64 H Blood Pressure Location Lt brachial Rt brachial Position Sitting Sitting Respiration 16 Pulse 60 Pulse Source Pulse Oximeter Temp 99.0 F Temp Source Temporal Artery Scan Pulse Oximetry (%) 96 Oxygen Delivery Method Room Air Intake Visit Reasons: review lab results Intake Note: patient here for labs review Clinical Biostatistician Required: No Accompanied by: Son Is last menstrual period known: No Post menopausal: No Patient : No Allergies pneumococcal vaccine Allergy (Unknown, Verified 07/14/25 14:59) unknown amoxicillin Allergy (Verified 07/14/25 14:59) Unknown aspirin Allergy (Verified 07/14/25 14:59) Unknown carvedilol Allergy (Verified 07/14/25 14:59) Unknown chlorthalidone Allergy (Verified 07/14/25 14:59) Unknown clarithromycin Allergy (Verified 07/14/25 14:59) Unknown doxycycline Allergy (Verified 07/14/25 14:59) Unknown dyphylline Allergy (Verified 07/14/25 14:59) Unknown hydrochlorothiazide Allergy (Verified 07/14/25 14:59) Unknown levofloxacin (From Levaquin) Allergy (Verified 07/14/25 14:59) Unknown lisinopril Allergy (Verified 07/14/25 14:59) Unknown loratadine (From Claritin) Allergy (Verified 07/14/25 14:59) Unknown methylprednisolone Allergy (Verified 07/14/25 14:59) Unknown prednisone Allergy (Verified 07/14/25 14:59) Unknown rosuvastatin Allergy (Verified 07/14/25 14:59) Dizziness spironolactone Allergy (Verified 07/14/25 14:59) Unknown tetracycline Allergy (Verified 07/14/25 14:59) Unknown theophylline Allergy (Verified 07/14/25 14:59) Unknown atorvastatin Adverse Reaction (Intermediate, Verified 07/14/25 14:59) myalgias amlodipine Adverse Reaction (Mild, Verified 07/14/25 15:23) peripheral swelling beets Allergy (Mild, Uncoded 07/14/25 14:59) Itching influenza vaccine Allergy (Unknown, Uncoded 07/14/25 14:59) unknown Contrast Dye Allergy (Uncoded 07/14/25 14:59) Unknown Slo-bid Gyrocaps Allergy (Uncoded 07/14/25 14:59) Unknown Medication List - Last Reconciled 07/15/25 by DALE Flower albuterol sulfate 2.5 mg (3 mL) inhalation Q4-6H PRN albuterol sulfate 90 mcg/actuation 2 puffs inhalation Q6H PRN apixaban (Eliquis) 5 mg PO BID cholecalciferol (vitamin D3) 50 mcg PO DAILY cyanocobalamin (vitamin B-12) 1,000 mcg PO DAILY ferrous sulfate 325 mg PO DAILY fluticasone furoate-vilanterol 100-25 mcg/dose (Breo Ellipta) 1 inh inhalation DAILY levothyroxine 25 mcg PO DAILY lovastatin 10 mg PO BEDTIME metoprolol succinate ER 25 mg PO DAILY miscellaneous medical supply 1 ea miscellaneous DAILY valsartan 320 mg PO DAILY Tobacco use date assessed: 07/14/25 Fall risk assessment: No Falls in past year Last assessed Fall Risk: 07/14/25 Dental Screening Dental Screen Date: 07/14/25 Did you have a dental visit in the last 12 months?: Yes Did you have a dental problem in the last 6 months where you did not have access to dental care?: No Was dental information given to patient?: Patient has dentist HPI HPI Comments History of Present Illness Details This is a 75-year-old female with a past medical history of osteoarthritis, asthma, chronic anemia, B12 deficiency, colon polyps, elevated alkaline phosphatase, hypertension, hyperparathyroidism, hypothyroidism, atrial fibrillation, aortic aneurysm, obstructive sleep apnea, vitamin-D deficiency and varicose veins presenting for follow up. She is a recent transfer from [facility], Dr. Mukesh Kennedy. She is here with her son. She had a neck pain on the left side last night. It was hard to move her head. It is feeling better today. She has a pending order for an x-ray of the cervical spine already. Denies chest pain, shortness of breath, dizziness, headache. Anemia, low b12-she transferred care from Dr. Garza to [facility]. Hyperlipidemia-atorvastatin and rosuvastatin discontinued due to side effects. She is taking lovastatin. She denies side effects. She will repeat her cholesterol test. Atrial fibrillation, aortic aneurysm-followed by cardiology, Dr. Morocho, but she will transferring to Dr. Thomason. She has an echocardiogram scheduled this week. Taking Eliquis and a beta-amish. She had a recent CT chest on 12/20/24 4.2 cm unchanged ascending aortic aneurysm. Patient endorses only brief intermittent episodes of palpitations. No dizziness, chest pain or syncope. Hypertension-her blood pressure has been chronically elevated, and she has been resistant to changing her medication regimen due to side effects on prior medications. She is on metoprolol and valsartan. She has a blood pressure cuff at home. At higher dosages of metoprolol she suffered episodes of bradycardia which resulted in hospitalization. She endorses adverse reactions to multiple antihypertensive including carvedilol, chlorthalidone, hydrochlorothiazide, lisinopril, spironolactone and amlodipine. Initial blood pressure was 201/77, but it decreased to 176/64. History of CVA 3 years ago-presented with right-sided weakness, numbness and aphasia. She transferred from Dr Zavala for pulmonary hyptertension and asthma to [facility]. [place]-on CPAP. Patient says her breathing has been doing well. She transferred from [facility] to [facility] endocrinology for hyperparathyroidism and hypothyroidism. She takes levothyroxine. She has severe bilateral osteoarthritis in her knees. Followed by Orthopedics. Did PT evaluation for motorized scooter evaluation so she is hoping to get that soon.. Mammograms and bone density at [facility]. Declines influenza vaccine. ROS: Constitutional: No unexplained weight loss, fever, chills or night sweats. Eyes: No vision changes, blurry vision, double vision, eye pain, eye redness, eye discharge. ENT: No hearing loss, sneezing, congestion, runny nose or sore throat. Respiratory: No shortness of breath, cough or sputum production. Cardiovascular: No chest pain, chest pressure or chest discomfort or pedal edema. Neurologic: No headache, dizziness, syncope, unilateral weakness, ataxia, numbness or tingling in the extremities. Musculoskeletal: See HPI Hematologic/Lymphatics: No bleeding or bruising. No painful lymph nodes. Endocrine: No cold or heat intolerance. No polyuria or polydipsia. Physical exam: Constitutional: Alert, in no distress. Head: Normocephalic. Ear, Nose and Throat: Canals clear. TMs normal. Normal nasal mucosa. No nasal discharge. No oral lesions. Neck: Supple, Full range of motion. No lymphadenopathy. No palpable thyroid masses. Respiratory: Clear to auscultation. Cardiovascular: S1 S2 regular. No murmurs. Cervical spine: Full range of motion. No midline tenderness. Extremities: Warm and well perfused. No clubbing, cyanosis. 1+ lower extremity edema. Intact peripheral pulses bilaterally. Psychiatric: Normal mood and affect [facility] Medical History Hypercalcemia Facial paresthesia Cervicalgia History of CVA (cerebrovascular accident) Myalgia Paresthesia Morbid obesity Varicose vein of leg Vitamin D deficiency [place] (obstructive sleep apnea) Aortic aneurysm Atrial fibrillation Hypothyroid Hyperparathyroidism Essential hypertension Elevated alkaline phosphatase level Colon polyp B12 deficiency Chronic anemia Moderate persistent asthma Bilateral primary osteoarthritis of knee Family History (Updated 07/09/25 @ 08:40 by Lilian Moncada CMA) Mother Diabetes Congenital heart problem Father Congenital heart problem Diabetes Son Diabetes Social History Household Members: Children Housing: Apartment Alcohol intake: never Patient Tobacco Use Status: Never used Tobacco e-Cigarette/Vaping Use: Never Used Second Hand Smoke Exposure: Yes service: No Current occupational status: retired Current occupational exposures/hazards: No Cognitive needs: No Hearing needs: No Vision needs: No Questionnaire Thrive Questionnaire Date Thrive assessed: 12/23/24 I am a: Patient What is your living situation today?: I have a steady place to live Within the past 12 months, did the food you bought not last and you didn't have the money to get more?: Never true Within the past 12 months, did you worry whether your food would run out before you got money to buy more?: Never true Do you have trouble paying for medicines?: No Do you have trouble getting transportation to medical appointments?: No Do you have trouble paying your heating and electricity bill?: No Do you have trouble taking care of your child, family member or friend?: No Do you have trouble with day-to-day activities such as bathing, preparing meals, shopping, managing finances, etc.?: No Are you currently unemployed and looking for a job?: No Are you interested in more education?: No Please select the resources that you would like help with: None Currently or been in a relationship where the following occur: No concerns reported THRIVE Score: 0 ADAM-7 AMB Questionnaire ADAM-7 Date ADAM - 7 assessed: 12/30/24 Source: Developed by Drs. Teo Garcia, Ania Gilliland, Juan Marin and colleagues, with an educational miri from [employer]. Physical exam (Primary Care) Vital Signs: Last Vital Signs Temp 99.0 F 07/14/25 15:00 Pulse 60 07/14/25 15:00 Resp 16 07/14/25 15:00 BP 176/64 H 07/14/25 15:13 Pulse Ox 96 07/14/25 15:00 Oxygen Delivery Method Room Air 07/14/25 15:00 BMI result Body Mass Index 45.4 Tobacco/Smoking Status: Tobacco use Status Tobacco use date assessed 07/14/25 07/14/25 15:04 Patient Tobacco Use Status Never used Tobacco 07/14/25 14:56 e-Cigarette/Vaping Use Never Used 07/14/25 14:56 Thrive Assessment: Date of Thrive Assessment Date Thrive assessed 12/23/24 07/14/25 14:56 Currently or been in a relationship where the following occur: No concerns reported Coding Level of Care Code Est Pt Level 4 (55087) Complex EM visit Add On G2211 Diagnoses Atrial fibrillation, unspecified type I48.91 Atrial fibrillation type: unspecified Essential hypertension I10 Hypothyroid E03.9 Hyperparathyroidism E21.3 Chronic anemia D64.9 History of CVA (cerebrovascular accident) Z86.73 Cervicalgia M54.2 Assessment & Plan Assessment & Plan (1) Atrial fibrillation: Code(s): I48.91 - Unspecified atrial fibrillation Category: Medical Qualifiers: Atrial fibrillation type: unspecified Qualified Code(s): I48.91 - Unspecified atrial fibrillation (2) Essential hypertension: Code(s): I10 - Essential (primary) hypertension Category: Medical (3) Hypothyroid: Code(s): E03.9 - Hypothyroidism, unspecified Category: Medical (4) Hyperparathyroidism: Code(s): E21.3 - Hyperparathyroidism, unspecified Category: Medical (5) Chronic anemia: Code(s): D64.9 - Anemia, unspecified Category: Medical (6) History of CVA (cerebrovascular accident): Code(s): Z86.73 - Personal history of transient ischemic attack (TIA), and cerebral infarction without residual deficits Category: Medical (7) Cervicalgia: Code(s): M54.2 - Cervicalgia Category: Medical Plan The patient did not tolerate rosuvastatin and atorvastatin. She is doing okay on lovastatin 10 mg nightly and plan to increase this if she tolerates it. Check lipid profile. Atrial fibrillation, aortic aneurysm-she is transferring care to [facility]. Continue current medications for hypertension. She has an echo scheduled. Hypertension is chronically uncontrolled. We discussed the risks of uncontrolled high blood pressure including worsening aneurysm or aneurysm or rupture, stroke, heart disease, kidney disease and ocular manifestations. Recommended trial of hydralazine, but she declined to make any changes to her medication regimen today. She agrees to a consult with Nephrology for recommendations regarding her hyper tension regimen. Asthma-continue current regimen. Followed by [facility] pulmonology. Declined flu shot. She is followed by Orthopedics for severe osteoarthritis of the knees. She is awaiting the scooter. She had the PT evaluation. Patient will have x-ray of the cervical spine completed. Continue levothyroxine. Followed by [facility] endocrinology. Follow up in 3 months. Orders: Orders Lipid Panel 07/14/25 E78.5 - Hyperlipidemia, unspecified Referrals Nephrology Referral I10 - Essential (primary) hypertension
[2025-07-14 15:00] VITALS: BP 201/77; PULSE 60; RESP 16; TEMP 37.2; O2SAT 96; BMI 45.4
[2025-07-14 15:13] VITALS: BP 176/64
== END 2025-07-14 15:38 | disposition home or self-care (01) ==
LOC: HO.HMCFM 14:51
PROVIDERS: PCP Physician Assistant Medical; Visit Provider Physician Assistant Medical
DX: I48.91 Unspecified atrial fibrillation (principal); I10 Essential (primary) hypertension; E03.9 Hypothyroidism, unspecified; E21.3 Hyperparathyroidism, unspecified; D64.9 Anemia, unspecified; Z86.73 Personal history of transient ischemic attack (TIA), and cerebral infarction without residual deficits; M54.2 Cervicalgia

== ENCOUNTER → 2025-07-14 14:50 | Outpatient (BNVA) | payer MEDICARE, MEDICAID, SELFPAY | PROVIDERS: PCP Physician Assistant Medical; Visit Provider Physician Assistant Medical | DX: I48.91 Unspecified atrial fibrillation (principal); I10 Essential (primary) hypertension; E03.9 Hypothyroidism, unspecified; E21.3 Hyperparathyroidism, unspecified; D64.9 Anemia, unspecified; M54.2 Cervicalgia; Z86.73 Personal history of transient ischemic attack (TIA), and cerebral infarction without residual deficits | CPT/HCPCS: 99212 ==

== ENCOUNTER 2025-07-15 10:44 | Outpatient (REF) | payer MEDICARE, MEDICAID, SELFPAY ==
--- NOTE | ~2025-07-15 | US_ITS ---
EXAMINATION: US RETROPERITONEAL LIMITED (RENAL ONLY) CLINICAL INFORMATION: Hyperparathyroidism, unspecified. COMPARISON: None available. TECHNIQUE: Real-time imaging of the kidneys. FINDINGS: As per technologist note, exam limited by bowel gas and patient breathing. RIGHT KIDNEY: 9.6 x 4.1 x 5.7 cm (SAG x AP x TRV). The kidney is normal in size, contour, and echogenicity. Renal cortical thickness is normal. No calculi or focal parenchymal lesions. No hydronephrosis. LEFT KIDNEY: 8.7 x 4.7 x 4.5 cm (SAG x AP x TRV). The kidney is normal in size, contour, and echogenicity. Renal cortical thickness is normal. No calculi or focal parenchymal lesions. No hydronephrosis. US/US renal BI IMPRESSION: Normal renal ultrasound.. Electronically signed by: Tex Rodriguez MD 07/15/2025 01:05 PM [facility]
--- NOTE | ~2025-07-15 | US_ITS ---
EXAMINATION: US THYROID HISTORY: E21.3 - Hyperparathyroidism, unspecified TECHNIQUE: Real-time grayscale ultrasound imaging was performed and images were reviewed. COMPARISON: None FINDINGS: SIZE: The right thyroid lobe measures 4.3 x 1.9 x 1.6 cm. The left thyroid lobe measures 3.8 x 2 x 1.4 cm. The isthmus measures 0.4 mm. FLOW: Flow to the gland is normal. ECHOGENICITY: The echotexture of the gland is normal. NODULES: Small 3 x 2 x 2 mm hypoechoic or cystic nodule in the anterior mid left lobe. No suspicious thyroid nodule. No parathyroid adenoma seen. No lymphadenopathy. US/US thyroid IMPRESSION: No parathyroid adenoma seen. Small 3 mm left thyroid nodule. Electronically signed by: Christina Bergman MD 07/15/2025 02:15 PM [facility]
== END 2025-07-15 10:45 | disposition home or self-care (01) ==
LOC: HO.US 10:44
PROVIDERS: PCP Physician Assistant Medical; Visit Provider Student in an Organized Health Care Education/Training Program
DX: E21.3 Hyperparathyroidism, unspecified (principal)
CPT/HCPCS: 76536; 76775

== ENCOUNTER → 2025-07-15 11:14 | Outpatient (BNV) | payer MEDICARE, MEDICAID, SELFPAY | PROVIDERS: PCP Physician Assistant Medical; Visit Provider Radiology Diagnostic Radiology | DX: E21.3 Hyperparathyroidism, unspecified (principal); E04.1 Nontoxic single thyroid nodule | CPT/HCPCS: 76536; 76775 ==

== ENCOUNTER → 2025-07-16 12:48 | Outpatient (REF) | payer MEDICARE, SELFPAY ==
--- NOTE | 2025-07-16 12:51 | CA_ITS ---
Transthoracic Echocardiogram Patient (Last, First, Middle): Symone Vizcaino, Gender: F Date of : 1950 Age: 75 Procedure Date: 07/16/2025 Procedure Type: Transthoracic Echocardiogram Location: OP Height: 142.24 cm Weight: 91.63 kg BSA: 1.78 m2 Heart Rate: bpm BP: 180 / 86 mmHg Security And Privacy Consultant: TO Referring MD: Lu Ponce NP Symptoms: I27.20 - Pulmonary hypertension, unspecified Study Quality: Adequate ECG Rhythm: Sinus Conclusions: - The left ventricular systolic function is normal. The calculated ejection fraction is 60% by biplane method. - No obvious valvular pathology seen on this study. - There is mild dilatation of the ascending aorta measuring 4.30 cm. Findings Left Ventricle Normal left ventricular cavity size. There is normal left ventricular wall thickness. The left ventricular systolic function is normal. The calculated ejection fraction is 60% by biplane method. There is no evidence of regional wall motion abnormalities. Evidence suggests grade I (mild) diastolic dysfunction. Right Ventricle Mildly increased right ventricular cavity size. There is normal right ventricular systolic function. Atria Mild biatrial enlargement. Aortic Valve There is a normal trileaflet aortic valve. There is no aortic valve stenosis. There is no aortic valve regurgitation. Mitral Valve The mitral valve appears normal. There is trace mitral valve regurgitation. There is no mitral valve stenosis. Pulmonic Valve The pulmonic valve is likely normal. Tricuspid Valve There is trace tricuspid valve regurgitation. There is no evidence of pulmonary hypertension. Great Vessels There is mild dilatation of the ascending aorta measuring 4.30 cm. Venous The inferior vena cava is normal in size and collapses greater than 50% with inspiration. Pericardium/Pleural There is no evidence of pericardial effusion. Prior Study Comparison No prior study available for comparison. Recommendations, Care & Conclusions No obvious valvular pathology seen on this study. Measurements 2D Linear Measurements IVSd: 0.91 0.6-0.9/0.6-1.0 cm LVIDd: 4.98 3.9-5.3/4.2-5.9 cm LVIDd Index: 2.80 2.4-3.2/2.2-3.1 cm/m2 LVIDs: 3.23 2.0-3.6 cm LVPWd: 0.94 0.7-1.1 cm LA Diam: 4.00 2.7-3.8/3.0-4.0 cm LAIDs Index: 2.25 1.5-2.3 cm/m2 LV Mass: 202.47 67-162/88-224 g LV Mass Index: 113.75 43-95/49-115 g/m2 LVOT Diam: 2.00 3.0+(-)1.3 cm 2D Systolic Function EF 4C: 58.00 >55% EF 2C: 60.60 >55% EF BiP: 59.60 >55% Mitral Valve MV Pk E: 0.69 MV PK A: 0.87 MV Decel Time: 233.00 E/A: 0.80 E'Lateral: 8.16 E'Medial: 5.77 E/E' Med: 12.00 E/E' Lat: 8.50 PHT: 68.00 MVA PHT: 3.24 Decel Pickett: 2.96 Aortic Valve AoV Pk Jose: 1.47 AoV Mn Jose: 0.95 AoV VTI: 0.30 AoV Pk Grad: 9.00 Aov Mn Grad: 4.00 KELLEE Cont.VTI: 2.97 LVOT LVOT Pk Jose: 1.14 LVOT Mn Jose: 0.80 LVOT VTI: 0.29 LVOT Pk Grad: 5.00 LVOT Mn Grad: 3.00 LVOT Diam: 2.00 LVOT Area: 3.14 Diastolic Function MV Pk E: 0.69 MV Pk A: 0.87 E/A: 0.80 E'Medial: 5.77 E/E' Med: 12.00 E' Laterial: 8.16 E/E' Lat: 8.50 Right Ventricle TAPSE (mm): 28.70 TVS' Jose: 14.50 Tricuspid Valve TR Pk Jose: 2.01 TR Pk Grad: 16.00 RA Press: 3.00 RVSP: 19.00 Great Vessels Aorta Sinus of Valsalva: 3.41 2.0-3.[address] Ridge: 2.84 1.7-3.4 cm Ao Asc: 4.30 2.1-3.4 cm Ao Arch: 3.30 Updated in Other Vendor System with Status of Final Scott Garsia MD electronically signed on 07/17/2025 10:44:31 AM with status of Final
--- OUTSIDE RECORDS SUMMARY | 2025-07-17 00:34 | XMS_ITS | Clinical Summary ---
Author Organization [facility] Address [address] [place] [phone] Phone Care Team Providers Care Communication Analyst Name Role Phone Zahira Willingham Primary Care Provide r Encounters Date Type Department Care Team Description 07/08/2025 11:00 AM EST Office Visit [facility] [address] [place] [address] Zahira Willingham PA Vaine, Joann, OT CVA, old, ataxia (Primary Dx) 06/05/2025 Transcribe Orders [facility] [address] [place] [address] Zahira Willingham PA Encounter for rehabilitation (Primary [...] Orientation Not on file Plan of Treatment Health Maintenance Due Date Last Done Comments [...] 2025 INFLUENZA VACCINE (#1) 2025 COVID-19 VACCINE ( - 2024-2 6 season) 2025 HEPATITIS A [...] file Insurance MEDICARE PART A & B [facility] MEDICARE PART A & B [place] PART A & B MEDICARE [place] MED[place] A & B [facility] Care Teams Communication Analyst Relationship Specialty Start Date End Date Zahira Willingham PA [address] [place] [address] [phone] PCP - General Physician Pe Teacher 05/20/25 Additional Source Comments The information contained in this document represents components of the legal health record. It is not the complete legal health record.[facility]
== END ==
LOC: HO.CARD 12:48
PROVIDERS: PCP Physician Assistant Medical; Visit Provider Nurse Practitioner Family
DX: I27.20 Pulmonary hypertension, unspecified (principal)
CPT/HCPCS: 93306

== ENCOUNTER → 2025-07-16 12:51 | Outpatient (BNV) | payer MEDICARE, MEDICAID, SELFPAY | PROVIDERS: PCP Physician Assistant Medical; Visit Provider Internal Medicine | DX: I77.810 Thoracic aortic ectasia (principal) | CPT/HCPCS: 93306 ==

== ENCOUNTER 2025-08-07 13:52 | Outpatient (AMB) | payer MEDICARE, MEDICAID, SELFPAY ==
[2025-08-07 14:08] VITALS: BP 210/90; PULSE 62; O2SAT 94; BMI 42.6
--- NOTE | 2025-08-07 14:08 | HO.NEPHOV ---
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: No Accompanied by: Self / Same As Patient Allergies pneumococcal vaccine Allergy (Unknown, Verified 08/07/25 14:11) unknown amoxicillin Allergy (Verified 08/07/25 14:11) Unknown aspirin Allergy (Verified 08/07/25 14:11) Unknown carvedilol Allergy (Verified 08/07/25 14:11) Unknown chlorthalidone Allergy (Verified 08/07/25 14:11) Unknown clarithromycin Allergy (Verified 08/07/25 14:11) Unknown doxycycline Allergy (Verified 08/07/25 14:11) Unknown dyphylline Allergy (Verified 08/07/25 14:11) Unknown hydrochlorothiazide Allergy (Verified 08/07/25 14:11) Unknown levofloxacin (From Levaquin) Allergy (Verified 08/07/25 14:11) Unknown lisinopril Allergy (Verified 08/07/25 14:11) Unknown loratadine (From Claritin) Allergy (Verified 08/07/25 14:11) Unknown methylprednisolone Allergy (Verified 08/07/25 14:11) Unknown prednisone Allergy (Verified 08/07/25 14:11) Unknown rosuvastatin Allergy (Verified 08/07/25 14:11) Dizziness spironolactone Allergy (Verified 08/07/25 14:11) Unknown tetracycline Allergy (Verified 08/07/25 14:11) Unknown theophylline Allergy (Verified 08/07/25 14:11) Unknown atorvastatin Adverse Reaction (Intermediate, Verified 08/07/25 14:11) myalgias amlodipine Adverse Reaction (Mild, Verified 08/07/25 14:11) peripheral swelling beets Allergy (Mild, Uncoded 07/14/25 14:59) Itching influenza vaccine Allergy (Unknown, Uncoded 07/14/25 14:59) unknown Contrast Dye Allergy (Uncoded 07/14/25 14:59) Unknown Slo-bid Gyrocaps Allergy (Uncoded 07/14/25 14:59) Unknown Medication List - Last Reconciled 08/07/25 by Bashir Gee MD albuterol sulfate 2.5 mg (3 mL) inhalation Q4-6H PRN albuterol sulfate 90 mcg/actuation 2 puffs inhalation Q6H PRN apixaban (Eliquis) 5 mg PO BID cholecalciferol (vitamin D3) 50 mcg PO DAILY cyanocobalamin (vitamin B-12) 1,000 mcg PO DAILY ferrous sulfate 325 mg PO DAILY fluticasone furoate-vilanterol 100-25 mcg/dose (Breo Ellipta) 1 inh inhalation DAILY levothyroxine 25 mcg PO DAILY lovastatin 10 mg PO BEDTIME metoprolol succinate ER 25 mg PO DAILY miscellaneous medical supply 1 ea miscellaneous DAILY valsartan 320 mg PO DAILY HPI Comments Details: History of Present Illness The patient is a 75 year old female presenting for management of high blood pressure. She notes her blood pressure often goes up in the doctor's office, with a reading today of 210/90 mmHg. She is currently taking valsartan 320 mg, which was increased from a lower dose, metoprolol, and Eliquis. She does not regularly check her blood pressure at home. Her medical history is significant for a stroke in 2021, which presented with arm symptoms and transient loss of voice without chest pain or headache. Additional history includes anemia, sleep apnea for which she uses a CPAP mask, asthma, an ascending Aortic aneurysm- measuring 4.3 cm , Hypothyroid, and ? hyperparathyroidism. She is followed by specialists for her lung, endocrine, and hematologic conditions. Her kidney function has remained stable, and a kidney ultrasound in June was normal. She reports dietary modifications, including avoiding a lot of salt and being mindful of fat and oil intake. She is also enrolled in a weight management program. She takes vitamin D3 and B12 supplements. Results - Imaging: An ultrasound of the kidney performed in June was noted to be good. - Labs: Kidney function has been stable. [facility] Medical History Hypercalcemia Facial paresthesia Cervicalgia History of CVA (cerebrovascular accident) Myalgia Paresthesia Morbid obesity Varicose vein of leg Vitamin D deficiency [place] (obstructive sleep apnea) Aortic aneurysm Atrial fibrillation Hypothyroid Hyperparathyroidism Essential hypertension Elevated alkaline phosphatase level Colon polyp B12 deficiency Chronic anemia Moderate persistent asthma Bilateral primary osteoarthritis of knee Family History Mother Diabetes Congenital heart problem Father Congenital heart problem Diabetes Son Diabetes Social History Household Members: Children Housing: Apartment Alcohol intake: never Patient Tobacco Use Status: Never used Tobacco e-Cigarette/Vaping Use: Never Used Second Hand Smoke Exposure: Yes service: No Current occupational status: retired Current occupational exposures/hazards: No Cognitive needs: No Hearing needs: No Vision needs: No Review of Systems Const Denies fever(s) and Denies weight loss Card Denies chest pain Resp Denies cough and Denies hemoptysis GI Denies abdominal pain, Denies diarrhea and Denies nausea Musc Denies back pain Neuro Denies focal weakness Physical Exam Exam Exam: Physical Exam General: Awake. Comfortable. HENT: Neck supple. Mucosa moist. Pulmonary: Lungs aeration equal. No rales. Cardiology: Heart S1-S2 heard. No gallop. Abdomen: Soft. Non tender. Bowel sounds normal. Neurologic: No involuntary movements. No myoclonus. Extremities: No edema. No rash. Vital Signs: Last Vital Signs Pulse 62 08/07/25 14:08 BP 210/90 H 08/07/25 14:08 Pulse Ox 94 08/07/25 14:08 Oxygen Delivery Method Room Air 08/07/25 14:08 BMI result Body Mass Index 42.6 Comfortable Obese Neck supple no JVD. Lungs entry equal no rales. Heart S1-S2 heard no gallop or rub. Abdomen soft nontender. Neuro alert awake oriented. No asterixis. Extremities no edema. Results Reviewed Nephrology Results: Hgb, (12.0-16.0) 11.5 g/dl L 08/05/25 WBC, (4.8-10.8) 4.4 X10*3/uL L 08/05/25 Plt Count, (160-400) 180 X10*3/uL 08/05/25 Sodium, (135-145) 144 mmol/L 08/05/25 Potassium, (3.3-5.1) 4.3 mmol/L 08/05/25 Chloride, (96-108) 110 mmol/L H 08/05/25 Carbon Dioxide, (22-29) 30 mmol/L H 08/05/25 BUN, (9-16) 17 mg/dL H 08/05/25 Creatinine, (0.5-1.4) 0.79 mg/dL 08/05/25 Calcium, (8.4-10.2) 11.1 mg/dL H 08/05/25 Renal US 07/15/25 Assessment & Plan Assessment & Plan (1) Essential hypertension: Code(s): I10 - Essential (primary) hypertension Category: Medical (2) Morbid obesity: Code(s): E66.01 - Morbid (severe) obesity due to excess calories Category: Medical Plan 1. Hypertension - The patient's blood pressure is significantly elevated in the office, but there is a concern for white coat hypertension. - No changes will be made to her current antihypertensive medications at this time. - The plan is to proceed with a 24-hour ambulatory blood pressure monitoring to assess her blood pressure throughout the day and night. - Based on the results of the 24-hour monitor, her medications may be adjusted or further testing may be initiated. - The patient was advised to continue monitoring her blood pressure at home and to be careful with salt intake. 2. Coordination Of Care - The patient is actively followed by other specialists, including a ice cream maker for asthma, an hand spray operator for thyroid and parathyroid issues, and another provider for anemia. - She will undergo a urine collection test as ordered by another provider. - She is also participating in a weight management program. Patient Instructions - We will arrange for you to wear a 24-hour blood pressure monitor. This involves wearing a cuff on your arm for a full day and night, and it will automatically check your blood pressure regularly. - We will not make any changes to your blood pressure medicine until we see the results from the 24-hour monitor. - Please schedule a follow-up visit after the monitoring is complete to discuss the results and next steps. - Please continue to check your blood pressure at home. - Continue to be careful with the amount of salt in your diet. - Continue with your weight management program. Orders: Orders AMB 24 HR B/P Monitor PLACEMENT Today I10 - Essential (primary) hypertension Coding Level of Care Code New Pt Level 4 (82264) Diagnoses Essential hypertension I10 Morbid obesity E66.01
--- OUTSIDE RECORDS SUMMARY | 2025-08-07 21:08 | XMS_ITS | Clinical Summary ---
Author Organization [facility] Address [address] [place] [phone] Phone Care Team Providers Care Garment Manufacturer Name Role Phone Zahira Willingham Primary Care Provide r Encounters Date Type Department Care Team Description 07/08/2025 11:00 AM EST Office Visit [facility] [address] [place] [address] Zahira Willingham PA Vaine, Joann, OT CVA, old, ataxia (Primary Dx) 06/05/2025 Transcribe Orders [facility] [address] [place] [address] Zahira Willignham PA Encounter for rehabilitation (Primary Dx) from [...] file Insurance MEDICARE PART A & B [facility] MEDICARE PART A & [place] [facility] B [facility] Care Teams Garment Manufacturer Relationship Specialty Start Date End Date Zahira Willingham PA [address] [place] [id number] PCP - General Physician Rig Supervisor 05/20/25 Additional Source Comments The information contained in this document represents components of the legal health record. It is not the complete legal health record.[facility]
== END 2025-08-07 14:36 | disposition home or self-care (01) ==
LOC: HO.HKA 13:53
PROVIDERS: PCP Physician Assistant Medical; Referring Provider Physician Assistant Medical; Visit Provider Internal Medicine Hypertension Specialist
DX: I10 Essential (primary) hypertension (principal); E66.01 Morbid (severe) obesity due to excess calories
CPT/HCPCS: 99204

== ENCOUNTER → 2025-08-07 13:52 | Outpatient (BNVA) | payer MEDICARE, SELFPAY | PROVIDERS: PCP Physician Assistant Medical; Referring Provider Physician Assistant Medical; Visit Provider Internal Medicine Hypertension Specialist | DX: I10 Essential (primary) hypertension (principal); E66.01 Morbid (severe) obesity due to excess calories | CPT/HCPCS: 99202 ==

== ENCOUNTER → 2025-08-12 14:47 | Outpatient (REF) | payer MEDICARE, MEDICAID, SELFPAY ==
--- OUTSIDE RECORDS SUMMARY | 2025-08-12 19:10 | XMS_ITS | Clinical Summary ---
Author Organization [facility] Address [address] [place] [phone] Phone Care Team Providers Care Felled Seam Operator Name Role Phone Zahira Willingham Primary Care Provide r Encounters Date Type Department Care Team Description 07/08/2025 11:00 AM EST Office Visit [facility] [address] [place] [address] Zahira Willingham PA Vaine, Joann, OT CVA, old, ataxia (Primary Dx) 06/05/2025 Transcribe Orders [facility] [address] [place] [address] Zahira Willingham PA Encounter for rehabilitation (Primary [...] file Insurance MEDICARE PART A & B [facility] MEDICARE PART A & [place] [facility] A & B [facility] Care Teams Felled Seam Operator Relationship Specialty Start Date End Date Zahira Willingham PA [address] [place] [id number] PCP - General Physician Checkout Operator 05/20/25 Additional Source Comments The information contained in this document represents components of the legal health record. It is not the complete legal health record.[facility]
== END ==
LOC: HO.SL 14:47
PROVIDERS: PCP Physician Assistant Medical; Visit Provider Nurse Practitioner Family
DX: R40.0 Somnolence (principal); G47.33 Obstructive sleep apnea (adult) (pediatric)
CPT/HCPCS: 95806

== ENCOUNTER → 2025-08-12 15:07 | Outpatient (BNV) | payer MEDICARE, MEDICAID, SELFPAY | PROVIDERS: PCP Physician Assistant Medical; Visit Provider Internal Medicine | DX: G47.33 Obstructive sleep apnea (adult) (pediatric) (principal) | CPT/HCPCS: 95806 ==